=== PATIENT | male | born 2005 ===

== ENCOUNTER 2024-07-29 16:50 | Inpatient (IN) | payer MEDICAID, OTHER, SELFPAY ==
[2024-07-29 17:31] VITALS: BMI 35.0
[2024-07-29 17:32] VITALS: BP 171/92; PULSE 103; RESP 18; TEMP 36.9; O2SAT 99
[2024-07-29] MEDS: Nicotine Polacrilex 2 MG GUM 4 MG BUCCAL (17:40)
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
[2024-07-29] MEDS: OLANZapine ODT 10 MG TAB.RAPDIS TRANSLINGU ×2 (18:37→20:19)
--- NOTE | 2024-07-29 18:48 | PC.NURSE ---
Grandmother who raised him was on phone and gave her number to staff [phone] name is Aissatou she is [place] speaking only and he needs to sign a consent so we can speak with her.
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
--- OUTSIDE RECORDS SUMMARY | 2024-07-29 18:56 | XMS_ITS | Clinical Summary ---
Author Organization [facility] Address [address] [facility] [address] [place] [address] Care Team Providers Care Pastry Cook Helper Name Role Phone No Pcp, Per Patient Primary Care Provider Unavai lable Allergies No known active allergies Social History Tobacco Use Types Packs/Day Years Used Date Smoking Tobacco: Some Days Cigarettes Smokeless Tobacco: Current Tobacco Cessation:Ready to Q uit: Not Asked; Counseling Given: Not Answered Alcohol Use Standard Drinks/Week Comments Not Currently 0 (1 standard drink = 0.6 oz pur e alcohol) Sex and Gender Information Value Date Recorded Sex Assigned at Not on file Gender Identity Not on file Sexual Orientation Not on file Job Start Date Occupation Industry Not on file Not on file Not on file Last Filed Vital Signs Vital Sign Reading Time Taken Comments Blood Pressure 115/68 07/13/2022 4:10 PM EDT Pulse 72 07/13/2022 4:10 PM EDT Temperature 36.7 ??C (98 ??F) 07/13/2022 4:10 PM EDT Respiratory Rate 18 07/13/2022 4:10 PM EDT Oxygen Saturation 98% 07/13/2022 4:10 PM EDT Inhaled Oxygen Concentration - - Weight 86.2 kg (190 lb) 07/13/2022 4:10 PM EDT Height 167.6 cm (5' 6 ) 07/13/2022 4:10 PM EDT Body Mass Index 30.67 07/13/2022 4:10 PM EDT Plan of Treatment Health Maintenance Due Date Last Done Comments HIV Screening 2004 Tobacco Cessation Counseling 2004 MMR Vaccines (1 of 1 - Stand abhay series) 2005 Varicella Vaccines (1 of 2 - 13+ 2-dose series) 2017 HPV Vaccines (1 - Male 3-dos e series) 2019 Meningococcal B Vaccine (1 o f 2 - Standard) 2020 Hepatitis C Screening 2022 DTaP/Tdap/Td Vaccines (1 - Tdap) 2023 Hepatitis B Vaccines (1 of 3 - 19+ 3-dose series) 2023 Pneumococcal Vaccine: Pediat rics (0 to 5 Years) and At-Risk Patients (6 to 49 Years) (1 of 2 - PCV) 2023 COVID-19 Vaccine (1 - 2023-2 5 season) 2023 Influenza Vaccine (#1) 2023 Depression Screening 04/30/2024 HIB Vaccines Aged Out No longer eligi ble based on patient's age to complete this topic Hepatitis A Vaccines Aged Out No long er eligible based on patient's age to complete this topic IPV Vaccines Aged Out No longer eligi ble based on patient's age to complete this topic Meningococcal Vaccine Aged Out No cherelle farzad eligible based on patient's age to complete this topic Rotavirus Vaccines Aged Out No longer eligible based on patient's age to complete this topic Care Teams Pastry Cook Helper Relationship Specialty Start Date End Date No Pcp, Per Patient LASHAY PCP - General 06/28/22
--- OUTSIDE RECORDS SUMMARY | 2024-07-29 18:56 | XMS_ITS | Encounter Summary ---
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 Mercedes Bush RN - 07/28/2024 4:06 PM EDT PT BIBA FROM HOME WITH ACCIDENTAL OVERDOSE. PT ARRIVES ALERT AND ORIENTED X 3 SPEAKING CLEARLY IN FULL SENTENCES BUT FEELS OUT OF IT. PT PICKED UP MEDICATIONS FROM [facility] 3 DAYS AGO AND HAS BEEN TAKING THEM PRESCRIBED. PTS MEDICATION BOTTLES (HALDOL, LITHIUM, AND BENZTROPINE) HAVE A DIFFERENT PTS NAME. PT STATES HE HAS BEEN TAKING THE MEDICATIONS AT NIGHT BUT HAS BEEN FEELING DROWSY SOTOO MEDICATIONS THIS MORNING INSTEAD. PT SUPPOSED TO BE TAKING ZYPREXA, VISTARIL, AND MELATONIN. documented in this encounter Miscellaneous Notes * ED Obs Note - Santos Lim MD - 07/29/2024 9:37 AM EDT ED Observation Daily Note Subjective: No new medical complaints Clinical Impression None Exam: General: Alert. HEENT: Atraumatic. Neck: Supple. Respiratory: No respiratory distress. Abdominal: Nondistended. Neurologic: No gross weakness. Skin: Well perfused. Medical Decision Making: Initial ED note, vital signs, lab results were reviewed and I performed an independent interpretation. Patient was reevaluated. Patient's medical condition requires further observation to help determine final disposition. We will continue the diagnostic workup and obtain consultations as necessary. We will also monitor the patient for significant changes in medical status. 19M, hx psychiatric disorders who presented after taking another person's haldol and medications, medically cleared, with initial consideration of discharge, now in the ER with shaking and apparent pseudoseizures, stating he would like to talk to crisis. Now s/p negative repeat labs and EKG with negative head CT, well appearing, placed on observation for crisis evaluation. Seen and plan for xfer to [facility] for psych evaluation this PM. Discharge day management more than 30 minutes?: No Santos Lim MD 07/29/24 1401 * ED Obs Note - Harpreet Carbajal MD - 07/29/2024 4:40 AM EDT ED Observation Daily Note HPI Brandon Kelley is a 19 y.o.-year-old male who originally presented to the Emergency Department and was placed into observation. Please see the initial ED HPI/intake note for further details ED Observation Course Patient was monitored in the ED observation unit overnight. There were no significant events overnight, and no concerns relayed by nursing, except as noted in ED course below. Physical Examination BP (!) 148/98 (BP Location: Left arm, Patient Position: Lying) Pulse (!) 107 Temp 98.6 ??F (37 ??C) (Oral) Resp 18 SpO2 95% General: no acute distress Head: atraumatic Respiratory: unlabored breathing Cardiovascular: intact distal perfusion Gastrointestinal: nondistended Skin: warm, dry Extremities: No gross deformity Medical Decision Making ED Course as of 07/29/24441Jul 29, 2024 0439 WBC(!): 15.35 With an improving leukocytosis, no fever, no evidence of infection, the patient ambulatory, eat taking p.o. without incident, in no acute distress, vital signs stable, he is appropriate for dischargeat this time. Tachycardia noted on arrival is improving with oral fluids. [PT] ED Course User Index [PT] Harpreet Carbajal MD Clinical Impression Accidental drug overdose, initial encounter (Primary) Leukocytosis, unspecified type Transient alteration of awareness Discharge day management more than 30 minutes?: Yes Harpreet Carbajal MD 07/29/24 0442 * Attestation Note - Darius Giron MD - 07/28/2024 4:02 PM EDT [facility] EMERGENCY DEPARTMENT ED Attending Attestation Note Arrival Date: 07/28/2024 I personally made/approved the management plan and take responsibility for the patient management. Date of service: 07/28/2024 EMERGENCY DEPARTMENT ENCOUNTER [facility] EMERGENCY DEPARTMENT CHIEF COMPLAINT Drug Overdose HPI Brandon Kelley is a 19 y.o. male presenting with report of accidental ingestion of incorrect medications. The patient was noting he felt out of it. He reports he picked up the medications from the pharmacy and had been taking them the last 3 days but the bottles he showed us were for a different patient and they were for lithium 900 mg daily, Haldol and benztropine. Denies any fever, cough, vomiting, diarrhea, headache, rash, stiff neck. Denies any intentional ingestion or desire for self harm at this time. PAST MEDICAL HISTORY Past Medical History[1]reviewed SOCIAL HISTORY Social History[2]single FAMILY HISTORY Family History[3]no relevant SURGICAL HISTORY Past Surgical History[4]no relevant CURRENT MEDICATIONS Patient Medication List Previous Medications BENZTROPINE (COGENTIN) 0.5 MG TABLET CHLORPROMAZINE (THORAZINE) 50 MG TABLET ALLERGIES Allergies[5]no known allergies PHYSICAL EXAM Vitals: 07/29/24 0721 BP: 128/89 Pulse: 74 Resp: 18 Temp: SpO2: 96% Gnrl: NAD HEENT:AT/NC, EOMI, PERRLA, OPC NECK:supple, no meningismus RESP:CTA bilateral, no distress CV:RRR ABD:soft Nontender EXTR:normal pulses, no cords/calf tenderness NEURO:Slow to answer but A and O x 3, CN2-12 intact, str/sense intact PSYCH:calm and cooperative EKG Rhythm Strip: Sinus tach at 108 EKG: Sinus tach, normal QRS and intervals, nonspecific ST-T changes Independently interpreted RADIOLOGY Independently interpreted LABS: Labs BASIC METABOLIC PANEL - Abnormal Result Value Ref Range Sodium 133 (*) 136 - 144 mmol/L Potassium 3.6 3.4 - 5.1 mmol/L Chloride 99 (*) 101 - 111 mmol/L Total CO2/Bicarbonate 23 22 - 32 mmol/L Anion Gap 11 5 - 15 mmol/L BUN 10 8 - 20 mg/dL Creatinine, Blood 1.05 0.60 - 1.30 mg/dL Glucose, Blood 98 75 - 140 mg/dL Calcium 9.6 8.6 - 10.5 mg/dL Estimated GFR(CKD-EPI) 104 mL/min/BSA Comment: Estimated GFR (CKD-EPI Refit 2020) units mL/min/1.73m^2 CBC AND DIFFERENTIAL - Abnormal WBC 17.03 (*) 3.90 - 10.80 K/uL RBC 5.07 4.42 - 5.73 M/uL Hemoglobin 14.9 14.0 - 17.3 g/dL Hematocrit 43.9 40.1 - 51.0 % MCH 29.4 25.6 - 32.2 pg MCHC 33.9 32.0 - 36.0 g/dL MCV 87 83 - 96 fL RDW 12.5 11.5 - 14.0 % Platelet Count 306 154 - 369 K/uL Neutrophil 79.2 % Lymphocyte 11.7 % Monocyte 8.4 % Eosinophil 0.1 % Basophil 0.2 % Immature Granulocyte ([place], Myelo, Promyelocyte) 0.4 % Absolute Neutrophil Count 13.50 (*) 1.68 - 7.99 K/uL Absolute Immature Granulocyte ([place], Myelo, Promyelocyte) 0.06 0.00 - 0.09 K/uL Absolute Lymphocyte Count 1.99 0.66 - 4.75 K/uL Absolute Monocyte Count 1.43 (*) 0.16 - 1.40 K/uL Absolute Eosinophil Count 0.02 0.00 - 0.60 K/uL Absolute Basophil Count 0.03 0.00 - 0.32 K/uL DRUG SCREEN, URINE - Abnormal Amphetamines Screen, Urine Not Detected Not Detected Comment: Positive cut-off concentration 1000 ng/mL Barbiturates Screen, Urine Not Detected Not Detected Comment: Positive cut-off concentration 200 ng/mL. Benzodiazepine Screen, Urine Not Detected Not Detected Comment: Positive cut-off concentration 200 ng/mL Buprenorphine Screen, Urine Not Detected Not Detected Comment: Positive cut-off concentration 10 ng/mL Cannabinoids Screen, Urine Detected (*) Not Detected Comment: Positive cut-off concentration 50 ng/mL Cocaine Metabolite Screen, Urine Not Detected Not Detected Comment: Positive cut-off concentration 300 ng/mL. Methadone Screen, Urine Not Detected Not Detected Comment: Positive cut-off concentration 300 ng/mL. Opiates Screen, Urine Not Detected Not Detected Comment: Positive cut-off concentration 300 ng/mL. Oxycodone Screen, Urine Not Detected Not Detected Comment: Positive cut-off concentration 300 ng/mL. Propoxyphene Screen, Urine Not Detected Not Detected Comment: Positive cut-off concentration 300 ng/mL. Tricyclics Screen Not Detected Not Detected Comment: Positive cut-off concentration = 300 ng/mL Listed below are the typical positive cutoffs: Nortriptyline 300 Desimipramine 250 Amitriptyline 400 Doxepin 550 Amoxapine 100,000 3-[id number]-Flxvavuoyr 1,700 Chlorpromazine 1,300 Protriptyline 450 Clomipramine 350 Trimipramine 1,000 Cyclobenzaprine 400 Imipramine 350 Comment Comment: Interpretive Guidelines: Immunoassay Urine Drug Screening Screening assays provide preliminary results for medical purposes only. Many variables affect duration of detectability; Pharmacokinetics, presence of metabolite(s), patient variability (i.e body mass, state of hydration, diet) short term vs. extermination supervisor use of drug, urine pH, route of ingestion and the last time of ingestion/administration. A Positive result indicates only the presence of the drug or it's metabolite(s), and does not necessarily correlate with the extent of physiological and psychological effects. A Not Detected result indicates that the drug/metabolite is either not present or is present at levels below the cutoff of the test. Screening tests can have false positives or negatives. If requested, a confirmatory method such as GC/MS for a specific analyte can be sent to the reference laboratory if needed. Such test results are available in 3-5 days. Fentanyl testing is not available on site due to the current federal regulations. If needed, it canbe sent to the reference laboratory. If confirmatory testing is required, please contact the laboratory at [phone] to request further testing within 30 days for outpatients and 5 days for inhouse patients. An add on order is required. Narrative: Interpretive Guidelines: Immunoassay Urine Drug Screening Screening assays provide preliminary results for medical purposes only. Many variables affect duration of detectability; Pharmacokinetics, presence of metabolite(s),patient variability (i.e body mass, state of hydration,diet) short term vs. long-term use of drug, urine pH, route of ingestion and the last time of ingestion/administration. A Detected result indicates only the presence of the drug or it's metabolite(s), and does not necessarily correlate with the extent of physiological and psychological effects. A Not Detected result indicates that the drug/metabolite is either not present or is present at levels below the cutoff of the test. Screening tests can have false positives or negatives. If requested, a confirmatory method such as GC/MS for a specific analyte can be sent to the reference laboratory if needed. Such test results are available in 3-5 days. TOXICOLOGY SCREEN, BLOOD - Abnormal Acetaminophen Result,Blood <10 (*) 10 - 30 ug/mL Comment: Acetaminophen toxic range: Greater than 150 ug/mL at 4 hours after ingestion. Greater than 75 ug/mL at 8 hours after ingestion. Greater than 40 ug/mL at 12 hours after ingestion. Alcohol <5 <5 mg/dL Comment: The Laboratory will now report Ethanol units in mg/dL. To convert results to %, please divide the result by 1000. This is to better comply with the laboratory regulatory agencies. Salicylate Level, Blood <5 4 - 20 mg/dL Comment: Toxic Range: Greater than 30 mg/dl. Patients treated with Sulfasalazine may generate a FALSE HIGH result for Salicylate. Patients treated with Sulfapyridine may generate a FALSE LOW result for Salicylate. CBC - Abnormal WBC 15.35 (*) 3.90 - 10.80 K/uL RBC 4.82 4.42 - 5.73 M/uL Hemoglobin 14.2 14.0 - 17.3 g/dL Hematocrit 41.8 40.1 - 51.0 % MCH 29.5 25.6 - 32.2 pg MCHC 34.0 32.0 - 36.0 g/dL MCV 87 83 - 96 fL RDW 12.0 11.5 - 14.0 % Platelet Count 287 154 - 369 K/uL COMPREHENSIVE METABOLIC PANEL - Abnormal Sodium 134 (*) 136 - 144 mmol/L Potassium 3.5 3.4 - 5.1 mmol/L Chloride 97 (*) 101 - 111 mmol/L Total CO2/Bicarbonate 24 22 - 32 mmol/L Anion Gap 13 5 - 15 mmol/L BUN 8 8 - 20 mg/dL Creatinine, Blood 1.09 0.60 - 1.30 mg/dL Glucose, Blood 98 75 - 140 mg/dL Calcium 9.6 8.6 - 10.5 mg/dL Total Protein 8.0 (*) 6.1 - 7.9 g/dL Albumin, Blood 4.2 3.5 - 4.8 g/dL AST (SGOT) 24 15 - 41 U/L ALT (SGPT) 21 17 - 63 U/L Alkaline Phosphatase 66 38 - 126 U/L Total Bilirubin 1.0 0.3 - 1.2 mg/dL Estimated GFR(CKD-EPI) 100 mL/min/BSA Comment: This Cr-based equation underestimates GFR in patients with increased muscle mass. Order CYSTATIN C WITH GFR ESTIMATE, [id number], if additional evaluation of renal function is needed. CBC AND DIFFERENTIAL - Abnormal WBC 14.20 (*) 3.90 - 10.80 K/uL RBC 5.00 4.42 - 5.73 M/uL Hemoglobin 14.6 14.0 - 17.3 g/dL Hematocrit 43.4 40.1 - 51.0 % MCH 29.2 25.6 - 32.2 pg MCHC 33.6 32.0 - 36.0 g/dL MCV 87 83 - 96 fL RDW 12.0 11.5 - 14.0 % Platelet Count 306 154 - 369 K/uL Neutrophil 75.0 % Lymphocyte 14.2 % Monocyte 9.4 % Eosinophil 0.7 % Basophil 0.4 % Immature Granulocyte ([place], Myelo, Promyelocyte) 0.3 % Absolute Neutrophil Count 10.65 (*) 1.68 - 7.99 K/uL Absolute Immature Granulocyte ([place], Myelo, Promyelocyte) 0.04 0.00 - 0.09 K/uL Absolute Lymphocyte Count 2.02 0.66 - 4.75 K/uL Absolute Monocyte Count 1.34 0.16 - 1.40 K/uL Absolute Eosinophil Count 0.10 0.00 - 0.60 K/uL Absolute Basophil Count 0.05 0.00 - 0.32 K/uL MAGNESIUM - Normal Magnesium, Blood 1.8 1.8 - 2.5 mg/dL LITHIUM LEVEL - Normal Bena 0.9 0.6 - 1.2 mmol/L Comment: For peroidic testing and in situations of suspected inadequate dosage, sampling should be performed 12 hours after the last dose SARS COV2/INFLUENZA A/B AND RSV - Normal Coronavirus SARS-CoV-2 Negative Negative Influenza A Negative Negative Influenza B Negative Negative RSV by PCR Negative Negative Narrative: Test performed with [employer] GeneXpert SARS-CoV-2 PCR assay, which has received emergency use authorization (EUA) by the U.S. Food and Drug Administration. Negative results do not preclude SARS-CoV-2 infection and should not be used as the sole basis for treatment or other patient management decisions. LITHIUM LEVEL - Normal Bena 0.7 0.6 - 1.2 mmol/L Comment: For peroidic testing and in situations of suspected inadequate dosage, sampling should be performed 12 hours after the last dose TROPONIN - Normal Troponin I 0.01 <0.03 ng/mL Comment: 99th percentile upper reference limit (URL) <0.03 ng/ml Diagnostic sensitivity / specificity for serial time intervals after symptom onset Hours after symptom onset Sensitivity Specificity < 8 hours 90% 91% >=8 hours 92% 89% The hallmark of the [employer]'s Third [place] Definition of NV (myocardial infarction) is the detection of a rise and/or fall of cardiac biomarker values, with at least one of the values being elevated (i.e., > 99th percentile upper reference limit, URL). PH, VENOUS - Normal pH, Venous 7.41 7.33 - 7.43 MINT GREEN TOP PST Tube Received CBC AND DIFFERENTIAL Narrative: The following orders were created for panel order CBC and Differential. Procedure Abnormality Status --------- ------ CBC and Differential[[id number]] Abnormal Final result Please view results for these tests on the individual orders. CBC AND DIFFERENTIAL Narrative: The following orders were created for panel order CBC and Differential. Procedure Abnormality Status --------- ------ CBC and Differential[[id number]] Abnormal Final result Please view results for these tests on the individual orders. LABELS FOR EXTRA TUBES Narrative: The following orders were created for panel order Labels for Extra Tubes. Procedure Abnormality Status --------- ------ Mint Green Top[[id number]] Final result Please view results for these tests on the individual orders. ED COURSE & MEDICAL DECISION MAKING ED Course as of 07/29/24 1406 Tue Jul 29, 2024 4371 WBC(!): 15.35 With an improving leukocytosis, no fever, no evidence of infection, the patient ambulatory, eat taking p.o. without incident, in no acute distress, vital signs stable, he is appropriate for dischargeat this time. Tachycardia noted on arrival is improving with oral fluids. [PT] ED Course User Index [PT] Harpreet Carbajal MD DIFFERENTIAL:med ingestion, med toxicity, inf etiology, met enceph All nursing and triage notes reviewed. All labs ordered reviewed MDM: 19-year-old male, presents not feeling well noting he had been taking medications for 3 days and states he realized that the prescription bottles were for someone else. He had just picked up refills at the pharmacy. We did check labs, toxicology screens, EKG. Bena level was within stable range. We did get a repeat about 6 to 8 hours later and it was downtrending not going up. We did take the bottles away. He denies any attempt at self harm at this time He does have a leukocytosis. He has no fever. He is neck is supple, no rash or stiff neck. No signsor symptoms of infection. I was updated that earlier he had been given some Ativan and as he was getting somewhat aggressive with staff which they know has happened in the past. We are continuing to keep him in observation status as he awakens. We will ensure he goes back to his regular medications. No indication for LP, blood cultures, or abx. May consider consult if any changes Consideration of Admission/Observation: Escalation of care: ED obs for further monitoring as meds wear off Discussion with Other Healthcare Provider: Patient's presentation and ED course discussed with ED PA Independent Interpretation of Studies: EKG: See interpretation included in this note. Rhythm Strip: My interpretation is: ST at 108 Review of External (Non-ED) Records: Medical record: prior obs admissions and med hx Tests considered: head CT/LP not indicated Prescription medication considered but not given after discussion with patient/family: Prescriptionconsidered: No toxadrome req tx and Li level not supratherapeutic (900mg daily is accepted startingdose) DISPOSITION:adm ED obs Clinical Impression Accidental drug overdose, initial encounter (Primary) Leukocytosis, unspecified type Transient alteration of awareness Psychosis, unspecified psychosis type (HCC) Darius Giron MD [1] No past medical history on file. [2] Social History Socioeconomic History Marital status: Single Spouse name: N/A Number of children: 0 Highest education level: 11th grade Occupational History Occupation: Unemployed Occupation: Unemployed Tobacco Use Smoking status: Every Day Types: Cigarettes Tobacco comments: Pt states that when he can't smoke cigarettes or weed he has to have music or he will be inclined to hurt someone. Vaping Use Vaping status: Unknown Substance and Sexual Activity Alcohol use: Not Currently Comment: denies etoh use, tox negative Drug use: Yes Types: Marijuana Sexual activity: Yes Partners: Female control/protection: None [3] Family History Family history unknown: Yes [4] No past surgical history on file. [5] No Known Allergies Darius Giron MD 07/29/24 1407 documented in this encounter Plan of Treatment Pending Results Name Type Priority Associated Diagnoses Date /Time ECG 12 lead, to be obtained, other indication ECG STAT 07/28 4:18 PM EDT ECG 12 lead ECG STAT 07/29/2024 9: 08 AM EDT documented as of this encounter Procedures Procedure Name Priority Date/Time Associated Diagnosis Comments CT HEAD WO CONTRAST STAT 07/29/2024 9 :26 AM EDT ECG 12-LEAD STAT 07/29/2024 9:08 AM EDT Procedure Note - 07/29/2024 9:08 AM EDTThis note is in progress. SINUS RHYTHM NONSPECIFIC T-WAVE ABNORMALITY BORDERLINE ECG LABELS FOR EXTRA TUBES Routine 07/29/2024 8:48 AM EDT MINT GREEN TOP Routine 07/29/2024 8:48 AM EDT CBC AND DIFFERENTIAL STAT 07/29/2024 8:40 AM EDT CBC AND DIFFERENTIAL STAT 07/29/2024 8:40 AM EDT PH, VENOUS Routine 07/29/2024 8:38 AM EDT CBC STAT 07/29/2024 4:22 AM EDT LITHIUM LEVEL STAT 07/29/2024 12:33 AM EDT DRUG SCREEN, URINE STAT 07/28/2024 11:27 PM EDT TOXICOLOGY SCREEN, BLOOD STAT 07/28/2024 11:04 PM EDT TROPONIN STAT 07/28/2024 11:04 PM EDT COMPREHENSIVE METABOLIC PANEL STAT 07/28/2024 11:04 PM EDT CBC AND DIFFERENTIAL STAT 07/28/2024 5:37 PM EDT CBC AND DIFFERENTIAL STAT 07/28/2024 5:37 PM EDT SARS COV2/INFLUENZA A/B AND RSV STAT 07/28/2024 5:33 PM EDT MAGNESIUM STAT 07/28/2024 5:20 PM EDT LITHIUM LEVEL STAT 07/28/2024 5:20 PM EDT BASIC METABOLIC PANEL STAT 07/28/2024 5:20 PM EDT ECG 12-LEAD STAT 07/28/2024 4:18 PM EDT Procedure Note - 07/28/2024 4:18 PM EDTThis note is in progress. SINUS TACHYCARDIA NONSPECIFIC T-WAVE ABNORMALITY ABNORMAL RHYTHM ECG documented in this encounter Results * CT Head Without Contrast (07/29/2024 9:26 AM EDT) Anatomical Region Laterality Modality Head Computed Tomogra phy 07/29/2024 9:29 AM EDT Impressions 07/29/2024 9:30 AM EDT No evidence of acute intracranial pathology. Signed By: Eduardo Ferguson on 07/29/2024 9:30 AM on [id number] Narrative 07/29/2024 9:30 AM EDT EXAM: CT HEAD WO CONTRAST INDICATION: weakness. TECHNIQUE: Axial CT imaging of the head/brain was performed without intravenous contrast. Coronal and sagittal reformatted images were produced from the axial data set. All CT scans at this facility utilize one or more dose reduction techniques such as; automated exposure control; ma/kV adjustment per patient size; or iterative reconstruction technique. COMPARISON: None provided or available. FINDINGS: ? CEREBRAL PARENCHYMA: No evidence of hemorrhage, mass effect or acute territorial infarction. Parenchymal volume is appropriate for age. CEREBELLUM AND BRAINSTEM: Within normal limits. VENTRICLES: Within normal limits. EXTRA-AXIAL SPACES: No abnormal collection. VISUALIZED PARANASAL SINUSES: Predominantly clear. MASTOIDS: Predominantly clear. VISUALIZED ORBITS: Within normal limits. CALVARIUM: No evidence of acute fracture. No suspicious lesion. OTHER: None significant. Procedure Note Eduardo Ferguson MD - 07/29/2024 EXAM: CT HEAD WO CONTRAST INDICATION: weakness. TECHNIQUE: Axial CT imaging of the head/brain was performed without intravenous contrast. Coronal and sagittal reformatted images were produced from the axial data set. All CT scans at this facility utilize one or more dose reduction techniques such as; automated exposure control; ma/kV adjustment per patient size; or iterative reconstruction technique. COMPARISON: None provided or available. FINDINGS: CEREBRAL PARENCHYMA: No evidence of hemorrhage, mass effect or acute territorial infarction. Parenchymal volume is appropriate for age. CEREBELLUM AND BRAINSTEM: Within normal limits. VENTRICLES: Within normal limits. EXTRA-AXIAL SPACES: No abnormal collection. VISUALIZED PARANASAL SINUSES: Predominantly clear. MASTOIDS: Predominantly clear. VISUALIZED ORBITS: Within normal limits. CALVARIUM: No evidence of acute fracture. No suspicious lesion. OTHER: None significant. IMPRESSION: No evidence of acute intracranial pathology. Signed By: Eduardo Ferguson on 07/29/2024 9:30 AM on [id number] Santos Lim MD IMG CT ORDERABLES Final Re sult * Mint Green Top (07/29/2024 8:48 AM EDT) PST Tube Received 07/29/2024 10:01 AM EDT [facility] Blood PERIPHERAL BLOOD SPECIMEN / Unknown Venipuncture / Unknown 07/29/2024 8:48 AM EDT 07/29/2024 8:48 AM EDT Santos Lim MD LAB BLOOD ORDERABLES Final Result [facility] [address] [place] [address], [place] * (ABNORMAL) CBC and Differential (07/29/2024 8:40 AM EDT) WBC 14.20(H) 3.90 - 10.80 K/uL 07/29/2024 8:51 AM [facility] RBC 5.00 4.42 - 5.73 M/uL 07/29/2024 8:51 AM [facility] Hemoglobin 14.6 14.0 - 17.3 g/dL 07/29/2024 8:51 AM [facility] Hematocrit 43.4 40.1 - 51.0 % 07/29/2024 8:51 AM [facility] MCH 29.2 25.6 - 32.2 pg 07/29/2024 8:51 AM [facility] MCHC 33.6 32.0 - 36.0 g/dL 07/29/2024 8:51 AM [facility] MCV 87 83 - 96 fL 07/29/2024 8:51 AM [facility] RDW 12.0 11.5 - 14.0 % 07/29/2024 8:51 AM [facility] Platelet Count 306 154 - 369 K/uL 07/29/2024 8:51 AM [facility] Neutrophil 75.0 % 07/29/2024 8:51 AM [facility] Lymphocyte 14.2 % 07/29/2024 8:51 AM [facility] Monocyte 9.4 % 07/29/2024 8:51 AM [facility] Eosinophil 0.7 % 07/29/2024 8:51 AM [facility] Basophil 0.4 % 07/29/2024 8:51 AM [facility] Immature Granulocyte ([place], Myelo, Promyelocyte) 0.3 % 07/29/2024 8:51 AM [facility] Absolute Neutrophil Count 10.65(H) 1.68 - 7.99 K/uL 07/29/2024 8:51 AM [facility] Absolute Immature Granulocyte ([place], Myelo, Promyelocyte) 0.04 0.00 - 0.09 K/uL 07/29/2024 8:51 AM [facility] Absolute Lymphocyte Count 2.02 0.66 - 4.75 K/uL 07/29/2024 8:51 AM [facility] Absolute Monocyte Count 1.34 0.16 - 1.40 K/uL 07/29/2024 8:51 AM [facility] Absolute Eosinophil Count 0.10 0.00 - 0.60 K/uL 07/29/2024 8:51 AM [facility] Absolute Basophil Count 0.05 0.00 - 0.32 K/uL 07/29/2024 8:51 AM [facility] Blood PERIPHERAL BLOOD SPECIMEN / Unknown Venipuncture / Unknown 07/29/2024 8:40 AM EDT 07/29/2024 8:42 AM EDT us Santos Lim MD LAB BLOOD ORDERABLES Final Result Performing Organization Address [facility]/ZIP Co de Phone Number [facility] [address] [place] [phone], [place] * pH, Venous (07/29/2024 8:38 AM EDT) pH, Venous 7.41 7.33 - 7.43 07/29/2024 9:01 AM [facility] Blood PERIPHERAL BLOOD SPECIMEN / Unknown Venipuncture / Unknown 07/29/2024 8:38 AM EDT 07/29/2024 8:56 AM EDT us Santos Lim MD LAB BLOOD ORDERABLES Final Result [facility] [address] [place] [phone], [place] * (ABNORMAL) CBC (07/29/2024 4:22 AM EDT) WBC 15.35(H) 3.90 - 10.80 K/uL 07/29/2024 4:28 AM [facility] RBC 4.82 4.42 - 5.73 M/uL 07/29/2024 4:28 AM [facility] Hemoglobin 14.2 14.0 - 17.3 g/dL 07/29/2024 4:28 AM [facility] Hematocrit 41.8 40.1 - 51.0 % 07/29/2024 4:28 AM [facility] MCH 29.5 25.6 - 32.2 pg 07/29/2024 4:28 AM [facility] MCHC 34.0 32.0 - 36.0 g/dL 07/29/2024 4:28 AM [facility] MCV 87 83 - 96 fL 07/29/2024 4:28 AM [facility] RDW 12.0 11.5 - 14.0 % 07/29/2024 4:28 AM [facility] Platelet Count 287 154 - 369 K/uL 07/29/2024 4:28 AM [facility] Blood PERIPHERAL BLOOD SPECIMEN / Unknown Venipuncture / Unknown 07/29/2024 4:22 AM EDT 07/29/2024 4:26 AM EDT us Harpreet Carbajal MD LAB BLOOD ORDERABLES Final Resu lt Performing Organization Address [facility] Co de Phone Number [facility] [address] [place] [phone], [place] * Bena Level (07/29/2024 12:33 AM EDT) Bena 0.7 0.6 - 1.2 mmol/L 07/29/2024 12:58 AM EDT [facility] Comment:For peroidic testing and in situations of suspected inadequate dosage, sampling should be performed 12 hours after the last dose Blood PERIPHERAL BLOOD SPECIMEN / Unknown Venipuncture / Unknown 07/29/2024 12:33 AM EDT 07/29/2024 12:36 AM EDT us Darius Giron MD LAB BLOOD ORDERABLES Final Res ult Performing Organization Address [facility] Co de Phone Number [facility] [address] [place] [phone], [place] * (ABNORMAL) Drug Screen, Urine (07/28/2024 11:27 PM EDT) [facility] Amphetamines Screen, Urine Not Detected Not Detected 07/28/2024 11:53 PM [facility] Comment:Positive cut-off con centration 1000 ng/mL Barbiturates Screen, Urine Not Detected Not Detected 07/28/2024 11:53 PM [facility] Comment:Positive cut-off con centration 200 ng/mL. Benzodiazepine Screen, Urine Not Detected Not Detected 07/28/2024 11:53 PM [facility] Comment: Positive cut-off concentration 200 ng/mL Buprenorphine Screen, Urine Not Detected Not Detected 07/28/2024 11:53 PM [facility] Comment:Positive cut-off con centration 10 ng/mL Cannabinoids Screen, Urine Detected(A) Not Detected 07/28/2024 11:53 PM [facility] Comment:Positive cut-off con centration 50 ng/mL Cocaine Metabolite Screen, Urine Not Detected Not Detected 07/28/2024 11:53 PM [facility] Comment:Positive cut-off con centration 300 ng/mL. Methadone Screen, Urine Not Detected Not Detected 07/28/2024 11:53 PM [facility] Comment:Positive cut-off con centration 300 ng/mL. Opiates Screen, Urine Not Detected Not Detected 07/28/2024 11:53 PM [facility] Comment:Positive cut-off con centration 300 ng/mL. Oxycodone Screen, Urine Not Detected Not Detected 07/28/2024 11:53 PM [facility] Comment:Positive cut-off con centration 300 ng/mL. Propoxyphene Screen, Urine Not Detected Not Detected 07/28/2024 11:53 PM [facility] Comment:Positive cut-off con centration 300 ng/mL. Tricyclics Screen Not Detected Not Detected 07/28/2024 11:53 PM [facility] Comment: Positive cut-off concentration = 300 ng/mL Listed below are the typical positive cutoffs: ? Nortriptyline ? 300 ?Desimipramine ?250 ? Amitriptyline ? 400 ?Doxepin ?550 ? Amoxapine ? 100,000 ?0-[id number]-Fdbehcabls 1,700 ? Chlorpromazine ?1,300 ?Protriptyline ?450 ? Clomipramine ?350 ?Trimipramine ? 1,000 ? Cyclobenzaprine ? 400 ?Imipramine ? 350 Comment 07/28/2024 11:53 PM EDT [facility] Comment: Interpretive Guidelines: ??Immunoassay Urine Drug Screening Screening assays provide preliminary results for medical purposes only. ??Many variables affect duration of detectability; Pharmacokinetics, presence of metabolite(s), patient variability (i.e body mass, state of hydration, diet) short term vs. extermination supervisor use of drug, urine pH, route of ingestion and the last time of ingestion/administration. A Positive result indicates only the presence of the drug or it's metabolite(s), and does not necessarily correlate with the extent of physiological and psychological effects. A Not Detected result indicates that the drug/metabolite is either not present or is present at levels below the cutoff of the test. Screening tests can have false positives or negatives. If requested, a confirmatory method such as GC/MS for a specific analyte can be sent to the reference laboratory if needed. Such test results are available in 3-5 days. Fentanyl testing is not available on site due to the current federal regulations. If needed, it can be sent to the reference laboratory. If confirmatory testing is required, please contact the laboratory at [phone] to request further testing within 30 days for outpatients and 5 days for inhouse patients. An add on order is required. Urine URINE SPECIMEN / Unknown Collection / Unknown 07/28/2024 11:27 PM EDT 07/28/2024 11:29 PM EDT [facility] - 07/28/2024 11:53 PM EDT Interpretive Guidelines: ??Immunoassay Urine Drug Screening Screening assays provide preliminary results for medical purposes only. ??Many variables affect duration of detectability; Pharmacokinetics, presence of metabolite(s),patient variability (i.e body mass, state of hydration,diet) short term vs. extermination supervisor use of drug, urine pH, route of ingestion and the last time of ingestion/administration. A Detected result indicates only the presence of the drug or it's metabolite(s), and does not necessarily correlate with the extent of physiological and psychological effects. A Not Detected result indicates that the drug/metabolite is either not present or is present at levels below the cutoff of the test. Screening tests can have false positives or negatives. If requested, a confirmatory method such as GC/MS for a specific analyte can be sent to the reference laboratory if needed. Such test results are available in 3-5 days. us Etelvina WILSON URINE ORDERABLES Final Result [facility] [address] [place] [phone], * (ABNORMAL) Comprehensive Metabolic Panel (07/28/2024 11:04 PM EDT) Sodium 134(L) 136 - 144 mmol/L 07/29/2024 8:54 AM [facility] Potassium 3.5 3.4 - 5.1 mmol/L 07/29/2024 8:54 AM [facility] Chloride 97(L) 101 - 111 mmol/L 07/29/2024 8:54 AM [facility] Total CO2/Bicarbonate 24 22 - 32 mmol/L 07/29/2024 8:54 AM [facility] Anion Gap 13 5 - 15 mmol/L 07/29/2024 8:54 AM [facility] BUN 8 8 - 20 mg/dL 07/29/2024 8:54 AM [facility] Creatinine, Blood 1.09 0.60 - 1.30 mg/dL 07/29/2024 8:54 AM [facility] Glucose, Blood 98 75 - 140 mg/dL 07/29/2024 8:54 AM [facility] Calcium 9.6 8.6 - 10.5 mg/dL 07/29/2024 8:54 AM [facility] Total Protein 8.0(H) 6.1 - 7.9 g/dL 07/29/2024 8:54 AM [facility] Albumin, Blood 4.2 3.5 - 4.8 g/dL 07/29/2024 8:54 AM [facility] AST (SGOT) 24 15 - 41 U/L 07/29/2024 8:54 AM [facility] ALT (SGPT) 21 17 - 63 U/L 07/29/2024 8:54 AM [facility] Alkaline Phosphatase 66 38 - 126 U/L 07/29/2024 8:54 AM [facility] Total Bilirubin 1.0 0.3 - 1.2 mg/dL 07/29/2024 8:54 AM [facility] Estimated GFR(CKD-EPI) 100 mL/min/BS A 07/29/2024 8:54 AM [facility] Comment:This Cr-based equati on underestimates GFR in patients with increased muscle mass. Order CYSTATIN C WITH GFR ESTIMATE, [id number], if additional evaluation of renal function is needed. Blood PERIPHERAL BLOOD SPECIMEN / Unknown Venipuncture / Unknown 07/28/2024 11:04 PM EDT 07/28/2024 11:10 PM EDT us Santos Lim MD LAB BLOOD ORDERABLES Final Result [facility] [address] [place] [address], * Troponin I (07/28/2024 11:04 PM EDT) Troponin I 0.01 <0.03 ng/mL 07/29/2024 8:54 AM [facility] Comment: 99th percentile upper reference limit (URL) <0.03 ng/ml Diagnostic sensitivity / specificity for serial time intervals after symptom onset Hours after symptom onset ?? Sensitivity ?? Specificity < 8 hours ?90% ?91% >=8 hours ?92% ?89% The hallmark of the [employer]'s Third [place] Definition of [place] (myocardial infarction) is the detection of a rise and/or fall of cardiac biomarker values, with at least one of the values being elevated (i.e., > 99th percentile upper reference limit, URL). Blood PERIPHERAL BLOOD SPECIMEN / Unknown Venipuncture / Unknown 07/28/2024 11:04 PM EDT 07/28/2024 11:10 PM EDT us Santos Lim MD LAB BLOOD ORDERABLES Final Result [facility] [address] [place] [phone], * (ABNORMAL) Toxicology Screen, Plasma (07/28/2024 11:04 PM EDT) Acetaminophen Result,Blood <10(L) 10 - 30 ug/mL 07/28/2024 11:30 PM EDT [facility] Comment: Acetaminophen toxic range: ?? Greater than 150 ug/mL at 4 hours after ingestion. ?? Greater than ??75 ug/mL at 8 hours after ingestion. ?? Greater than ??40 ug/mL at 12 hours after ingestion. Alcohol <5 <5 mg/dL 07/28/2024 11:30 PM EDT [facility] Comment: The Laboratory will now report Ethanol units in mg/dL. To convert results to %, please divide the result by 1000. This is to better comply with the laboratory regulatory agencies. Salicylate Level, Blood <5 4 - 20 mg/dL 07/28/2024 11:30 PM EDT [facility] Comment: Toxic Range: Greater than 30 mg/dl. Patients treated with Sulfasalazine may generate a FALSE HIGH result for Salicylate. Patients treated with Sulfapyridine may generate a FALSE LOW result for Salicylate. Blood PERIPHERAL BLOOD SPECIMEN / Unknown Venipuncture / Unknown 07/28/2024 11:04 PM EDT 07/28/2024 11:10 PM EDT us Darius Giron MD LAB BLOOD ORDERABLES Final Res ult [facility] [address] [place] [address], [place] * (ABNORMAL) CBC and Differential (07/28/2024 5:37 PM EDT) WBC 17.03(H) 3.90 - 10.80 K/uL 07/28/2024 5:48 PM EDT [facility] RBC 5.07 4.42 - 5.73 M/uL 07/28[facility]24 [facility] Hemoglobin 14.9 14.0 - 17.3 g/dL 07/28/2024 5:48 PM [facility] Hematocrit 43.9 40.1 - 51.0 % 07/28/2024 5:48 [facility] MCH 29.4 25.6 - 32.2 pg 07/28/2024 5:48 [facility] MCHC 33.9 32.0 - 36.0 g/dL 07/28/2024 5:48 [facility] MCV 87 83 - 96 fL 07/28/2024 5:48 [facility] RDW 12.5 11.5 - 14.0 % 07/28/2024 5:48 [facility] Platelet Count 306 154 - 369 K/uL 07/28/2024 5:48 PM [facility] Neutrophil 79.2 % 07/28/2024 5:48 [facility] Lymphocyte 11.7 % 07/28/2024 5:48 [facility] Monocyte 8.4 % 07/28/2024 5:48 PM EDT [facility] Eosinophil 0.1 % 07/28/2024 5:48 PM EDT [facility] Basophil 0.2 % 07/28/2024 5:48 PM EDT [facility] Immature Granulocyte (Cordova, Myelo, Promyelocyte) 0.4 % 07/28/2024 5:48 PM EDT [facility] Absolute Neutrophil Count 13.50(H) 1.68 - 7.99 K/uL 07/28/2024 5:48 PM EDT [facility] Absolute Immature Granulocyte (Cordova, Myelo, Promyelocyte) 0.06 0.00 - 0.09 K/uL 07/28/2024 5:48 PM EDT [facility] Absolute Lymphocyte Count 1.99 0.66 - 4.75 K/uL 07/28/2024 5:48 PM EDT [facility] Absolute Monocyte Count 1.43(H) 0.16 - 1.40 K/uL 07/28/2024 5:48 PM EDT [facility] Absolute Eosinophil Count 0.02 0.00 - 0.60 K/uL 07/28/2024 5:48 PM EDT [facility] Absolute Basophil Count 0.03 0.00 - 0.32 K/uL 07/28/2024 5:48 PM EDT [facility] Blood PERIPHERAL BLOOD SPECIMEN / Unknown Venipuncture / Unknown 07/28/2024 5:37 PM EDT 07/28/2024 5:39 PM EDT us Etelvina WILSON LAB BLOOD ORDERABLES Final Res ult [facility] [address] [place] [address], [place] * Covid/Flu/RSV (Rapid) (07/28/2024 5:33 PM EDT) Coronavirus SARS-CoV-2 Negative Negative 07/28/2024 6:26 PM EDT [facility] Influenza A Negative Negative 07/28/2024 6:26 PM EDT [facility] Influenza B Negative Negative 07/28/2024 6:26 PM EDT [facility] RSV by PCR Negative Negative 07/28/2024 6:26 PM EDT [facility] Respiratory SWAB OF INTERNAL NOSE / Unknown Collection / Unknown 07/28/2024 5:33 PM EDT 07/28/2024 5:39 PM EDT Narrative [facility] - 07/28/2024 6:26 PM EDT Test performed with [employer] GeneXpert SARS-CoV-2 PCR assay, which has received emergency use authorization (EUA) by the U.S. Food and Drug Administration. Negative results do not preclude SARS-CoV-2 infection and should not be used as the sole basis for treatment or other patient management decisions. us Etelvina WILSON BODY FLUIDS AND STOOLS ORDERAB LES Final Result Performing Organization Address [facility] Co de Phone Number [facility] [address] [place] [phone], [place] * Bena Level (07/28/2024 5:20 PM EDT) Bena 0.9 0.6 - 1.2 mmol/L 07/28/2024 5:46 PM EDT [facility] Comment:For peroidic testing and in situations of suspected inadequate dosage, sampling should be performed 12 hours after the last dose Blood PERIPHERAL BLOOD SPECIMEN / Unknown Venipuncture / Unknown 07/28/2024 5:20 PM EDT 07/28/2024 5:23 PM EDT Etelvina WILSON LAB BLOOD ORDERABLES Final Res ult Performing Organization Address [facility]/ZIP Co de Phone Number [facility] [address] [place] [phone], [place] * Magnesium (07/28/2024 5:20 PM EDT) Magnesium, Blood 1.8 1.8 - 2.5 mg/dL 07/28/2024 5:45 PM EDT [facility] Blood PERIPHERAL BLOOD SPECIMEN / Unknown Venipuncture / Unknown 07/28/2024 5:20 PM EDT 07/28/2024 5:23 PM EDT us Etelvina WILSON LAB BLOOD ORDERABLES Final Res ult [facility] [address] [place] [address], [place] * (ABNORMAL) Basic Metabolic Panel (07/28/2024 5:20 PM EDT) Sodium 133(L) 136 - 144 mmol/L 07/28/2024 5:45 PM EDT [facility] Potassium 3.6 3.4 - 5.1 mmol/L 07/28/2024 5:45 PM EDT [facility] Chloride 99(L) 101 - 111 mmol/L 07/28/2024 5:45 PM EDT [facility] Total CO2/Bicarbonat e 23 22 - 32 mmol/L 07/28/2024 5:45 PM EDT [facility] Anion Gap 11 5 - 15 mmol/L 07/28/2024 5:45 PM EDT [facility] BUN 10 8 - 20 mg/dL 07/28/2024 5:45 PM T [facility] Creatinine, Blood 1.05 0.60 - 1.30 mg/dL 07/28/2024 5:45 PM T [facility] Glucose, Blood 98 75 - 140 mg/dL 07/28/2024 5:45 PM [facility] Calcium 9.6 8.6 - 10.5 mg/dL 07/28/2024 5:45 PM EDT [facility] Estimated GFR(CKD-EPI) 104 mL/min/BSA 07/28/2024 5:45 PM EDT [facility] Comment:Estimated GFR (CKD-E PI Refit 2020) units mL/min/1.73m^2 Blood PERIPHERAL BLOOD SPECIMEN / Unknown Venipuncture / Unknown 07/28/2024 5:20 PM EDT 07/28/2024 5:23 PM EDT Etelvina WILSON LAB BLOOD ORDERABLES Final Res ult Performing Organization Address City/[facility]/ZIP Co de Phone Number [facility] [address] [place] [address], documented in this encounter Visit Diagnoses Diagnosis Accidental drug overdose, initial encounter- Primary Leukocytosis, unspecified type Transient alteration of awareness Psychosis, unspecified psychosis type (HCC) documented in this encounter Administered Medications Inactive Administered Medications - up to 3 most recent administrations Medication Order MAR Action Action Date Dose Rate Site acetaminophen (TYLENOL) 650 mg/20.3 mL solution 650 mg 650 mg, Oral, Every 6 hours PRN, Starting on Sun07/28/24 at 2156, Until Sun07/29/24 at 1642, mild (1-3) pain , fever greater than 101 F, If unable to tolerate tablet acetaminophen (TYLENOL) tablet 650 mg 650 mg, Oral, Every 6 hours PRN, Starting on Sun07/28/24 at 2156, Until Sun07/29/24 at 1642, fever greater than 101 F, mild (1-3) pain ibuprofen (MOTRIN) 100 mg/5 mL suspension 600 mg 600 mg, Oral, Every 6 hours PRN, Starting on Sun07/28/24 at 2156, Until Sun07/29/24 at 1642, mild (1-3) pain , if acetaminophen not available or not ordered; if acetaminophen ordered, 2nd line ibuprofen (MOTRIN) tablet 600 mg 600 mg, Oral, Every 6 hours PRN, Starting on Sun07/28/24 at 2156, Until Sun07/29/24 at 1642, mild (1-3) pain , if acetaminophen not available or not ordered; if acetaminophen ordered, 2nd line LORazepam (ATIVAN) 2 mg/mL injection - ADS Override Pull 1 dose, Starting on Sun07/28/24 at 1952, Until Sun07/28/24 at 1954 LORazepam (ATIVAN) injection 1 mg 1 mg, Intramuscular, Every 6 hours PRN, Starting on Sun07/29/24 at 0944, Until Sun07/29/24 at 1642, anxiety Given 07/29/2024 12:19 PM EDT 1 mg Left Deltoid LORazepam (ATIVAN) injection 2 mg 2 mg, Intramuscular, Once, 1 dose, On Sun07/28/24 at 1952 Given 07/28/2024 7:54 PM EDT 2 mg Right Deltoid ondansetron (ZOFRAN) injection 4 mg 4 mg, Intravenous, Every 8 hours PRN, nausea, vomiting, if NOT tolerating PO, Starting on Sun07/28/24 at 2156 ondansetron (ZOFRAN-ODT) disintegrating tablet 4 mg 4 mg, Oral, Every 8 hours PRN, Starting on Sun07/28/24 at 2156, Until Sun07/29/24 at 1642, nausea, vomiting, if tolerating PO documented in this encounter Active and Recently Administered Medications Times are shown in EDT. Scheduled Medication Order 07/27/2024 07/28/2024 07/29/2024 0.9% sodium chloride (NS) BOLUS 1,000 mL 1,000 mL, Intravenous, Once, On Sun07/28/24 at 2302, For 1 dose, STAT, Administer over 1 Hours 0226 (Not Given - Provider: Iris Garcia RN - Reason: Patient Refused) 0.9% sodium chloride (NS) BOLUS 1,000 mL 1,000 mL, Intravenous, Once, On Sun07/28/24 at 2302, For 1 dose, STAT, Administer over 1 Hours 0226 (Not Given - Provider: Iris Garcia RN - Reason: Patient Refused) 0.9% sodium chloride (NS) BOLUS 500 mL 500 mL, Intravenous, Once, On Sun07/29/24 at 0834, For 1 dose, STAT, Administer over 1 Hours 0838 (Not Given - Provider: Leslie Juarez RN - Reason: Patient Refused) LORazepam (ATIVAN) injection 2 mg (COMPLETED) 2 mg, Intramuscular, Once, 1 dose, On Sun07/28/24 at 1952 1954 (Given - Provider: Mercedes Bush RN) PRN Medication Order 07/27/2024 07/28/2024 07/29/2024 acetaminophen (TYLENOL) 650 mg/20.3 mL solution 650 mg(Linked Group 1) 650 mg, Oral, Every 6 hours PRN, Starting on Sun07/28/24 at 2156, Until Sun07/29/24 at 1642, mild (1-3) pain , fever greater than 101 F, If unable to tolerate tablet acetaminophen (TYLENOL) tablet 650 mg(Linked Group 1) 650 mg, Oral, Every 6 hours PRN, Starting on Sun07/28/24 at 2156, Until Sun07/29/24 at 1642, fever greater than 101 F, mild (1-3) pain ibuprofen (MOTRIN) 100 mg/5 mL suspension 600 mg(Linked Group 2) 600 mg, Oral, Every 6 hours PRN, Starting on Sun07/28/24 at 2156, Until Sun07/29/24 at 1642, mild (1-3) pain , if acetaminophen not available or not ordered; if acetaminophen ordered, 2nd line ibuprofen (MOTRIN) tablet 600 mg(Linked Group 2) 600 mg, Oral, Every 6 hours PRN, Starting on Sun07/28/24 at 2156, Until Sun07/29/24 at 1642, mild (1-3) pain , if acetaminophen not available or not ordered; if acetaminophen ordered, 2nd line LORazepam (ATIVAN) injection 1 mg 1 mg, Intramuscular, Every 6 hours PRN, Starting on Sun07/29/24 at 0944, Until Sun07/29/24 at 1642, anxiety 1219 (Given - Provid er: Leslie Juarez RN) melatonin tablet 3 mg 3 mg, Oral, At bedtime as needed, Starting on Sun07/28/24 at 2156, Until Sun07/29/24 at 1642, insomnia ondansetron (ZOFRAN) injection 4 mg(Linked Group 3) 4 mg, Intravenous, Every 8 hours PRN, nausea, vomiting, if NOT tolerating PO, Starting on Sun07/28/24 at 2156 ondansetron (ZOFRAN-ODT) disintegrating tablet 4 mg(Linked Group 3) 4 mg, Oral, Every 8 hours PRN, Starting on Sun07/28/24 at 2156, Until Sun07/29/24 at 1642, nausea, vomiting, if tolerating PO Linked Groups Order Group 1: acetaminophen (TYLENOL) tablet 650 mgJump to med 650 mg, Oral, Every 6 hours PRN, Starting on Sun07/28/24 at 2156, Until Sun07/29/24 at 1642, fever greater than 101 F, mild (1-3) pain Or acetaminophen (TYLENOL) 650 mg/20.3 mL solution 650 mgJump to med 650 mg, Oral, Every 6 hours PRN, Starting on Sun07/28/24 at 2156, Until Sun07/29/24 at 1642, mild (1-3) pain , fever greater than 101 F, If unable to tolerate tablet Group 2: ibuprofen (MOTRIN) tablet 600 mgJump to med 600 mg, Oral, Every 6 hours PRN, Starting on Sun07/28/24 at 2156, Until Sun07/29/24 at 1642, mild (1-3) pain , if acetaminophen not available or not ordered; if acetaminophen ordered, 2nd line Or ibuprofen (MOTRIN) 100 mg/5 mL suspension 600 mgJump to med 600 mg, Oral, Every 6 hours PRN, Starting on Sun07/28/24 at 2156, Until Sun07/29/24 at 1642, mild (1-3) pain , if acetaminophen not available or not ordered; if acetaminophen ordered, 2nd line Group 3: ondansetron (ZOFRAN) injection 4 mgJump to med 4 mg, Intravenous, Every 8 hours PRN, nausea, vomiting, if NOT tolerating PO, Starting on Sun07/28/24 at 2156 Or ondansetron (ZOFRAN-ODT) disintegrating tablet 4 mgJump to med 4 mg, Oral, Every 8 hours PRN, Starting on Sun07/28/24 at 2156, Until Sun07/29/24 at 1642, nausea, vomiting, if tolerating PO documented in this encounter Additional Health Concerns Infection Onset Date Last Indicated Resolved Time Rule-Out Respiratory Virus 07/28/2024 07/28/2024 0 07/28/2024 6:26 PM EDT documented as of this encounter Care Teams [employer] Relationship Specialty Start Date End Date None, Pcp, PCP - General 06/07/24 documented as of this encounter
--- OUTSIDE RECORDS SUMMARY | 2024-07-29 18:56 | XMS_ITS | Encounter Summary ---
Author Organization [facility] Address [address] [place] [address] Care Team Providers Care Decoration Checker Name Role Phone FlorinЮлия PROSPER Primary Care Provider [phone] Reason for Visit * Reason Comments Office Visit: Converted Data Conversion Encounter Details Date Type Department Care Team (Late Contact Info) Description 07/06/2020 Dental Interim Note [facility] Dental [address], [address] [place] [address] Default, [facility] Provider [place] Social History Tobacco Use Types Packs/Day Years Used Date Smoking Tobacco: Never Assessed Social Connections Answer Date Recorded Social Connections and Isolation 0 06/22/2020 Financial Resource Strain Answer Date R ecorded Financial Resource Strain 0 2020 Stress Answer Date Recorded Stress 0 06/22/2020 Physical Activity Answer Date Recorded Physical Activity 0 06/22/2020 Food Insecurity Answer Date Recorded Food 0 06/22/2020 Transportation Needs Answer Date Record ed Transportation 0 06/22/2020 Housing Stability Answer Date Recorded Housing 0 06/22/2020 Safety and Environment Answer Date Saqib rded Safety 0 06/22/2020 Utilities Answer Date Recorded Utilities 0 06/22/2020 Employment Answer Date Recorded Employment 0 06/22/2020 Sex and Gender Information Value Date Recorded Sex Assigned at Male 05/31/2023 11:00 AM PST Legal Sex Male 10:56 PM PST Gender Identity Male 05/31/2023 11:00 AM PST Sexual Orientation Choose not to disclose 2023 11:00 AM PST documented as of this encounter Plan of Treatment Upcoming Encounters Date Type Department Care Team (Late Contact Info) Description 08/04/2024 11:45 AM EDT Office Visit [facility] Primary Care [address] [phone] Юлия Catherine NP [address] [place] [phone] 08/04/2024 2:00 PM EDT BH/MH Visits [facility] Behavioral Health [address] [place] [phone] Mercy Olivarez LICSW [address] [address] 08/27/2024 3:00 PM EDT Office Visit [address] [phone] Gina Ortega, [place] [address] documented as of this encounter Visit Diagnoses Not on filedocumented in this encounter Care Teams Decoration Checker Relationship Specialty Start Date End Date Юлия Catherine NP [address] [place] [phone] PCP - General 05/05/24 documented as of this encounter
--- OUTSIDE RECORDS SUMMARY | 2024-07-29 18:56 | XMS_ITS | Clinical Summary ---
Author Organization [facility] Address [address] [place] [phone] Phone Care Team Providers Care Machine Strap Buckler Name Role Phone Unavailable Primary Care Provider Unavailabl e Allergies No known active allergies Medications No known medications Social History Tobacco Use Types Packs/Day Years Used Date Smoking Tobacco: Never Assessed Sex and Gender Information Value Date Recorded Sex Assigned at Not on file Legal Sex Male 12:35 PM EDT Gender Identity Not on file Sexual Orientation Not on file Last Filed Vital Signs Vital Sign Reading Time Taken Comments Blood Pressure - - Pulse - - Temperature 36.5 ??C (97.7 ??F) 01/31/2018 3:11 PM ED T Respiratory Rate - - Oxygen Saturation - - Inhaled Oxygen Concentration - - Weight 74.4 kg (164 lb) 01/31/2018 3:11 PM EDT Height - - Body Mass Index - - Plan of Treatment Health Maintenance Due Date Last Done Comments MMR Vaccines (1 of 1 - Stand abhay series) 2005 Varicella Vaccines (1 of 2 - 13+ 2-dose series) 2017 HPV Vaccines (1 - Male 3-dos e series) 2019 Men B Vaccine (1 of 2 - Standard) 2020 DTaP,Tdap,and Td Vaccines (1 - Tdap) 2022 Hepatitis B Vaccines (1 of 3 - 19+ 3-dose series) 2023 Influenza Vaccines (#1) 2023 COVID-19 Vaccine ( - 2023-2 5 season) 2023 HIB Vaccines Aged Out No longer eligi [...] on patient's age to complete this topic Pneumococcal Vaccine Aged Out No long er eligible based on patient's age to complete this topic
--- OUTSIDE RECORDS SUMMARY | 2024-07-29 18:56 | XMS_ITS | Clinical Summary ---
Author Organization [facility] stark Address [address] [place], [place] [id number] Care Team Providers Care First Assistant Name Role Phone None, Pcp MD Primary Care Provider Unavailabl e Allergies No known active allergies Medications benztropine (COGENTIN) 0.5 MG tablet Take 1 tablet (0.5 mg total) by mouth 2 times a day as needed. 06/23/2023 Active chlorproMAZINE (THORAZINE) 50 MG tablet Take 1 tablet (50 mg total) by mouth at bedtime as needed (insomnia). 05/31/2023 Active Active Problems Problem Noted Date Diagnosed Date Oppositional defiant disorder 11/27/2019 Encounters Date Type Department Care Team Description 07/28/2024 4:02 PM EDT - 07/29/2024 2:41 PM EDT Emergency [facility] Emergency Department [address] [place] [id number] Darius Grubbs MD Treut, MD Raphael Renae Benjamin J, MD Accidental drug overdose, initial encounter (Primary Dx); Leukocytosis, unspecified type; Transient alteration of awareness; Psychosis, unspecified psychosis type (HCC) Discharge Disposition: [facility] Hospital 07/28/2024 Travel 06/29/2024 9:02 PM EST - 07/01/2024 4:51 PM EST Emergency [facility] Emergency Department [address] [place] [id number] Naldo Poon MD Treut, MD Ezra Renae Michael, MD Newcomb, Mark, MD Hedlund, Marc, MD Stonely, Wesley, MD Trecartin, Kyle, MD Encounter for psychiatric assessment (Primary Dx); Homicidal ideation; Bipolar affective disorder, current episode depressed, current episode severity unspecified (HCC) [F31.30] Discharge Disposition: [facility] 06/29/2024 Travel 06/20/2024 7:25 PM EST - 06/24/2024 1:50 PM EST Emergency [facility] Emergency Department [address] [place] [phone] Yassine Culver MD Treut, Peter W, MD De-Matteo, Mark, MD Slakey, John, MD Kaufman, Santos Medina, Keith Mcpherson MD Fairfield, Scott, MD Gacioch, Brian, MD Barker, Kara E, DO Bipolar affective disorder, remission status unspecified (HCC) (Primary Dx) Discharge Disposition: Home or Self Care 06/20/2024 Travel 06/07/2024 5:46 PM EST - 06/11/2024 6:38 PM [facility] Emergency [facility] Emergency Department [address] [place] [phone] Carla Albert, MD Palacios, MD Raphael Andrews, Santos Medina, MD Stewart, MD Humera Cardozo Michael, MD Newcomb, MD Kirstin Morrison Scott, MD Stonely, Wesley, MD Trecartin, MD Joaquin Luevano, Keith Rowland MD Agitation requiring sedation protocol (Primary Dx); Bipolar affective disorder, remission status unspecified (HCC) Discharge Disposition: [facility] 06/07/2024 Travel from Last 3 Months Immunizations Name Administration Dates Next Due Tdap Vaccine (BOOSTRIX/ADACEL) 10/30/2022 Social History Tobacco Use Types Packs/Day Years Used Date Smoking Tobacco: Every Day Cigarettes Tobacco Cessation:Ready to Q uit: Not Asked; Counseling Given: Not Answered Comments:Pt states that when he can't smoke cigarettes or weed he has to have music or he will be inclined to hurt someone. Alcohol Use Standard Drinks/Week Comments Not Currently 0 (1 standard drink = 0.6 oz pure alcohol) denies etoh use, tox negative [facility] Utilities Answer Date Recorded In the past 12 months has [facility] [employer], gas, oil, or water [employer] threatened to shut off services in your [...] any time in the past 12 m [facility], were you homeless or living in a alf (including now)? Patient declined 06/29/2024 Food Insecurity [...] EDT Inhaled Oxygen Concentration - - Weight 97.5 kg (215 lb) 06/29/2024 9:25 PM EST Height 162.6 cm (5' 4 ) 06/29/2024 9:25 PM EST Body Mass Index 36.9 06/29/2024 9:25 PM EST Plan of Treatment Health Maintenance Due Date Last Done Comments Depression Screening 2008 Hepatitis C Screening 2022 Pneumococcal Vaccine: Pediatrics (0 to 5 Years) and At-Risk Patients (6 to 64 Years) (1 of 2 - PCV) 2023 COVID-19 Vaccine ( season) 2023 Influenza Vaccine (Season Ended) 2024 Blood Pressure 07/28/2025 07/29/2024 DTaP,Tdap,and Td Vaccines (9 - Td or Tdap) 10/30/2032 10/30/2022, 01/20/2019, 12/01/2016, Additional history exists Meningococcal Vaccines Aged Out 12/01/2016 No lo nger eligible based on patient's age to complete this topic Procedures Procedure Name Priority Date/Time Associated Diagnosis [...] SCREEN, URINE STAT 07/28/2024 11:27 PM EDT COMPREHENSIVE METABOLIC PANEL STAT 07/28/2024 11:04 PM EDT TROPONIN STAT 07/28/2024 11:04 PM EDT TOXICOLOGY SCREEN, BLOOD STAT 07/28/2024 11:04 PM EDT CBC AND DIFFERENTIAL STAT 07/28/2024 5:37 PM EDT CBC AND DIFFERENTIAL STAT 07/28/2024 5:37 PM EDT SARS COV2/INFLUENZA A/B AND RSV STAT 07/28/2024 5:33 PM EDT LITHIUM LEVEL STAT 07/28/2024 5:20 PM EDT MAGNESIUM STAT 07/28/2024 5:20 PM EDT BASIC METABOLIC PANEL STAT 07/28/2024 5:20 PM EDT ECG 12-LEAD STAT 07/28/2024 4:18 PM EDT Procedure Note - 07/28/2024 4:18 PM EDTThis note is in progress. SINUS TACHYCARDIA NONSPECIFIC T-WAVE ABNORMALITY ABNORMAL RHYTHM ECG ECG 12-LEAD STAT 06/22/2024 1:49 PM EST DRUG SCREEN, URINE STAT 06/21/2024 4: 13 PM EST LABELS FOR EXTRA TUBES Routine 06/20/2024 9:16 PM EST YELLOW TOP Routine 06/20/2024 9:16 PM EST RED TOP Routine 06/20/2024 9:16 PM EST CBC AND DIFFERENTIAL STAT 06/20/2024 9:10 PM EST CBC AND DIFFERENTIAL STAT 06/20/2024 9:10 PM EST MAGNESIUM STAT 06/20/2024 9:10 PM EST BASIC METABOLIC PANEL STAT 06/20/2024 9:10 PM EST DRUG SCREEN, URINE STAT 06/08/2024 1: 21 PM EST CBC AND DIFFERENTIAL STAT 06/08/2024 1:43 AM EST CBC AND DIFFERENTIAL STAT 06/08/2024 1:43 AM EST TOXICOLOGY SCREEN, BLOOD STAT 06/08/2024 1:43 AM EST MAGNESIUM STAT 06/08/2024 1:43 AM EST COMPREHENSIVE METABOLIC PANEL STAT 06/08/2024 1:43 AM EST from Last 3 Months Results * CT Head Without Contrast (07/29/2024 9:26 AM EDT) Anatomical Region Laterality Modality Head Computed Tomogra phy 07/29/2024 9:29 AM EDT Impressions 07/29/2024 9:30 AM EDT No evidence of acute intracranial pathology. Signed By: Eduardo Ferguson on 07/29/2024 9:30 AM on [id number] Narrative 07/29/2024 9:30 AM EDT EXAM: CT [...] Eduardo Ferguson on 07/29/2024 9:30 AM on [id number] us Santos Lim MD IMG CT ORDERABLES Final Re sult * [facility] (07/29/2024 8:48 AM EDT) Pathologist [facility] PST Tube Received 07/29/2024 10:01 AM EDT [facility] Blood PERIPHERAL BLOOD SPECIMEN / Unknown Venipuncture / Unknown 07/29/2024 8:48 AM EDT 07/29/2024 8:48 AM EDT us Santos Lim MD LAB BLOOD ORDERABLES Final Result [facility] [address] [place] [id number], * (ABNORMAL) CBC and Differential (07/29/2024 8:40 AM EDT) Only the most recent of4 resultswithin the time period is included. WBC 14.20(H) 3.90 - 10.80 K/uL 07/29/2024 8:51 AM EDT [facility] RBC 5.00 4.42 - 5.73 M/uL 07/29/2024 8:51 AM T [facility] Hemoglobin 14.6 14.0 - 17.3 g/dL 07/29/2024 8:51 AM EDT [facility] Hematocrit 43.4 40.1 - 51.0 % 07/29/2024 8:51 AM EDT [facility] MCH 29.2 25.6 - 32.2 pg 07/29/2024 8:51 AM [facility] MCHC 33.6 32.0 - 36.0 g/dL 07/29/2024 8:51 AM [facility] MCV 87 83 - 96 fL 07/29/2024 8:51 AM [facility] RDW 12.0 11.5 - 14.0 % 07/29/2024 8:51 AM [facility] Platelet Count 306 154 - 369 K/uL 07/29/2024 8:51 AM [facility] Neutrophil 75.0 % 07/29/2024 8:51 AM [facility] Lymphocyte 14.2 % 07/29/2024 8:51 AM [facility] Monocyte 9.4 % 07/29/2024 8:51 AM [facility] Eosinophil 0.7 % 07/29/2024 8:51 AM [facility] Basophil 0.4 % 07/29/2024 8:51 AM [facility] Immature Granulocyte ([place], Myelo, Promyelocyte) 0.3 % 07/29/2024 8:51 AM [facility] Absolute Neutrophil Count 10.65(H) 1.68 - 7.99 K/uL 07/29/2024 8:51 AM [facility] Absolute Immature Granulocyte ([place], Myelo, Promyelocyte) 0.04 0.00 - 0.09 K/uL 07/29/2024 8:51 AM [facility] Absolute Lymphocyte Count 2.02 0.66 - 4.75 K/uL 07/29/2024 8:51 AM [facility] Absolute Monocyte Count 1.34 0.16 - 1.40 K/uL 07/29/2024 8:51 AM [facility] Absolute Eosinophil Count 0.10 0.00 - 0.60 K/uL 07/29/2024 8:51 AM [facility] Absolute Basophil Count 0.05 0.00 - 0.32 K/uL 07/29/2024 8:51 AM [facility] Blood PERIPHERAL BLOOD SPECIMEN / Unknown Venipuncture / Unknown 07/29/2024 8:40 AM EDT 07/29/2024 8:42 AM EDT us Santos Lim MD LAB BLOOD ORDERABLES Final Result Performing Organization Address [facility]/ZIP Co de Phone Number [facility] [address] [place] [phone], [place] * pH, Venous (07/29/2024 8:38 AM EDT) pH, Venous 7.41 7.33 - 7.43 07/29/2024 9:01 AM EDT [facility] Blood PERIPHERAL BLOOD SPECIMEN / Unknown Venipuncture / Unknown 07/29/2024 8:38 AM EDT 07/29/2024 8:56 AM EDT us Santos Lim MD LAB BLOOD ORDERABLES Final Result Performing Organization Address [facility] de Phone Number [facility] [address] [place] [phone], [place] * (ABNORMAL) CBC (07/29/2024 4:22 AM EDT) WBC 15.35(H) 3.90 - 10.80 K/uL 07/29/2024 4:28 AM [facility] RBC 4.82 4.42 - 5.73 M/uL 07/29/2024 4:28 AM [facility] Hemoglobin 14.2 14.0 - 17.3 g/dL 07/29/2024 4:28 AM [facility] Hematocrit 41.8 40.1 - 51.0 % 07/29/2024 4:28 AM [facility] MCH 29.5 25.6 - 32.2 pg 07/29/2024 4:28 AM [facility] MCHC 34.0 32.0 - 36.0 g/dL 07/29/2024 4:28 AM [facility] MCV 87 83 - 96 fL 07/29/2024 4:28 AM [facility] RDW 12.0 11.5 - 14.0 % 07/29/2024 4:28 AM EDT [facility] Platelet Count 287 154 - 369 K/uL 07/29/2024 4:28 AM EDT [facility] Blood PERIPHERAL BLOOD SPECIMEN / Unknown Venipuncture / Unknown 07/29/2024 4:22 AM EDT 07/29/2024 4:26 AM EDT us Harpreet Carbajal MD LAB BLOOD ORDERABLES Final Resu lt Performing Organization Address [facility] Co de Phone Number [facility] [address] [place] [phone], [place] * [place] Level (07/29/2024 12:33 AM EDT) Only the most recent of2 resultswithin the time period is included. [place] 0.7 0.6 - 1.2 mmol/L 07/29/2024 12:58 AM [facility] Comment:For peroidic testing and in situations of suspected inadequate dosage, sampling should be performed 12 hours after the last dose Blood PERIPHERAL BLOOD SPECIMEN / Unknown Venipuncture / Unknown 07/29/2024 12:33 AM EDT 07/29/2024 12:36 AM EDT us Darius Grubbs MD LAB BLOOD ORDERABLES Final Res ult Performing Organization Address [facility] de Phone Number [facility] [address] [place] [phone], [place] * (ABNORMAL) Drug Screen, Urine (07/28/2024 11:27 PM EDT) Only the most recent of3 resultswithin the time period is included. Amphetamines Screen, Urine Not Detected Not Detected 07/28/2024 11:53 PM [facility] Comment:Positive cut-off con centration 1000 ng/mL Barbiturates Screen, Urine Not Detected Not Detected 07/28/2024 11:53 PM T [facility] Comment:Positive cut-off con centration 200 ng/mL. Benzodiazepine Screen, Urine Not Detected Not Detected 07/28/2024 11:53 PM [facility] Comment: Positive cut-off concentration 200 ng/mL Buprenorphine Screen, Urine Not Detected Not Detected 07/28/2024 11:53 PM [facility] Comment:Positive cut-off con centration 10 ng/mL Cannabinoids Screen, Urine Detected(A) Not Detected 07/28/2024 11:53 PM [facility] Comment:Positive cut-off con centration 50 ng/mL Cocaine Metabolite Screen, Urine Not Detected Not Detected 07/28/2024 11:53 PM [facility] Comment:Positive cut-off con centration 300 ng/mL. Methadone Screen, Urine Not Detected Not Detected 07/28/2024 11:53 PM [facility] Comment:Positive cut-off con centration 300 ng/mL. Opiates Screen, Urine Not Detected Not Detected 07/28/2024 11:53 PM [facility] Comment:Positive cut-off con centration 300 ng/mL. Oxycodone Screen, Urine Not Detected Not Detected 07/28/2024 11:53 PM [facility] Comment:Positive cut-off con centration 300 ng/mL. Propoxyphene Screen, Urine Not Detected Not Detected 07/28/2024 11:53 PM [facility] Comment:Positive cut-off con centration 300 ng/mL. Tricyclics Screen Not Detected Not Detected 07/28/2024 11:53 PM [facility] Comment: Positive cut-off concentration = 300 ng/mL Listed below are the typical positive cutoffs: ? Nortriptyline ? 300 ?Desimipramine ?250 ? Amitriptyline ? 400 ?Doxepin ?550 ? Amoxapine ? 100,000 ?1-Nrfrfvg-Cfdclqnnlp 1,700 ? Chlorpromazine ?1,300 ?Protriptyline ?450 ? Clomipramine ?350 ?Trimipramine ? 1,000 ? Cyclobenzaprine ? 400 ?Imipramine ? 350 Comment 07/28/2024 11:53 PM EDT [facility] Comment: Interpretive Guidelines: ??Immunoassay Urine Drug Screening Screening assays provide preliminary results for medical purposes only. ??Many variables affect duration of detectability; Pharmacokinetics, presence of metabolite(s), patient variability (i.e body mass, state of hydration, diet) short term vs. terminal gauger use of drug, urine pH, route of [...] 11:27 PM EDT 07/28/2024 11:29 PM EDT [facility] - 07/28/2024 11:53 PM EDT Interpretive Guidelines: ??Immunoassay Urine Drug Screening Screening assays provide preliminary results for medical purposes only. ??Many variables affect duration of detectability; Pharmacokinetics, presence of metabolite(s),patient variability (i.e body mass, state of hydration,diet) short term vs. alf use of drug, urine pH, route of [...] us Etelvina WILSON URINE ORDERABLES Final Result [facility] [address] [place] [address], [place] * (ABNORMAL) Toxicology Screen, Plasma (07/28/2024 11:04 PM EDT) Only the most recent of2 resultswithin the time period is included. Acetaminophen Result,Blood <10(L) 10 - 30 ug/mL 07/28/2024 11:30 PM EDT [facility] Comment: Acetaminophen toxic range: ?? Greater than 150 ug/mL at 4 hours after ingestion. ?? Greater than ??75 ug/mL at 8 hours after ingestion. ?? Greater than ??40 ug/mL at 12 hours after ingestion. Alcohol <5 <5 mg/dL 07/28/2024 11:30 PM T [facility] Comment: The Laboratory will now report Ethanol units in mg/dL. To convert results to %, please divide the result by 1000. This is to better comply with the laboratory regulatory agencies. Salicylate Level, Blood <5 4 - 20 mg/dL 07/28/2024 11:30 PM EDT [facility] Comment: Toxic Range: Greater than 30 mg/dl. Patients treated with Sulfasalazine may generate a FALSE HIGH result for Salicylate. Patients treated with Sulfapyridine may generate a FALSE LOW result for Salicylate. Blood PERIPHERAL BLOOD SPECIMEN / Unknown Venipuncture / Unknown 07/28/2024 11:04 PM EDT 07/28/2024 11:10 PM EDT us Darius Grubbs MD LAB BLOOD ORDERABLES Final Res ult Performing Organization Address [facility] de Phone Number [facility] [address] [place] [phone], * Troponin I (07/28/2024 11:04 PM EDT) Pathologist [facility] Troponin I 0.01 <0.03 ng/mL 07/29/2024 8:54 AM EDT [facility] Comment: 99th percentile upper reference limit (URL) <0.03 ng/ml Diagnostic sensitivity / specificity for serial time intervals after symptom onset Hours after symptom onset ?? Sensitivity ?? Specificity < 8 hours ?90% ?91% >=8 hours ?92% ?89% The hallmark of the [place] [employer]'s Third Coventry Definition of [place] (myocardial infarction) is the detection of a rise and/or fall of cardiac biomarker values, with at least one of the values being elevated (i.e., > 99th percentile upper reference limit, URL). Blood PERIPHERAL BLOOD SPECIMEN / Unknown Venipuncture / Unknown 07/28/2024 11:04 PM EDT 07/28/2024 11:10 PM EDT us Santos Lim MD LAB BLOOD ORDERABLES Final Result Performing Organization Address [facility] de Phone Number [facility] [address] [place] [address], [place] * (ABNORMAL) Comprehensive Metabolic Panel (07/28/2024 11:04 PM EDT) Only the most recent of2 resultswithin the time period is included. Pathologist [facility] Sodium 134(L) 136 - 144 mmol/L 07/29/2024 8:54 AM EDT [facility] Potassium 3.5 3.4 - 5.1 mmol/L 07/29/2024 8:54 AM [facility] Chloride 97(L) 101 - 111 mmol/L 07/29/2024 8:54 AM [facility] Total CO2/Bicarbonate 24 22 - 32 mmol/L 07/29/2024 8:54 AM [facility] Anion Gap 13 5 - 15 mmol/L 07/29/2024 8:54 AM [facility] BUN 8 8 - 20 mg/dL 07/29/2024 8:54 AM [facility] Creatinine, Blood 1.09 0.60 - 1.30 mg/dL 07/29/2024 8:54 AM [facility] Glucose, Blood 98 75 - 140 mg/dL 07/29/2024 8:54 AM [facility] Calcium 9.6 8.6 - 10.5 mg/dL 07/29/2024 8:54 AM [facility] Total Protein 8.0(H) 6.1 - 7.9 g/dL 07/29/2024 8:54 AM [facility] Albumin, Blood 4.2 3.5 - 4.8 g/dL 07/29/2024 8:54 AM [facility] AST (SGOT) 24 15 - 41 U/L 07/29/2024 8:54 AM [facility] ALT (SGPT) 21 17 - 63 U/L 07/29/2024 8:54 AM [facility] Alkaline Phosphatase 66 38 - 126 U/L 07/29/2024 8:54 AM [facility] Total Bilirubin 1.0 0.3 - 1.2 mg/dL 07/29/2024 8:54 AM [facility] Estimated GFR(CKD-EPI) 100 mL/min/BS A 07/29/2024 8:54 AM [facility] Comment:This Cr-based equati on underestimates GFR in patients with increased muscle mass. Order CYSTATIN C WITH GFR ESTIMATE, [id number], if additional evaluation of renal function is needed. Blood PERIPHERAL BLOOD SPECIMEN / Unknown Venipuncture / Unknown 07/28/2024 11:04 PM EDT 07/28/2024 11:10 PM EDT us Santos Lim MD LAB BLOOD ORDERABLES Final Result Performing Organization Address [facility] de Phone Number [facility] [address] [place] [phone], [place] * Covid/Flu/RSV (Rapid) (07/28/2024 5:33 PM EDT) Coronavirus SARS-CoV-2 Negative Negative 07/28/2024 6:26 PM EDT [facility] Influenza A Negative Negative 07/28/2024 6:26 PM EDT [facility] Influenza B Negative Negative 07/28/2024 6:26 PM EDT [facility] RSV by PCR Negative Negative 07/28/2024 6:26 PM EDT [facility] Respiratory SWAB OF INTERNAL NOSE / Unknown Collection / Unknown 07/28/2024 5:33 PM EDT 07/28/2024 5:39 PM EDT [facility] - 07/28/2024 6:26 PM EDT Test performed with [employer] GeneXpert SARS-CoV-2 PCR assay, which has received emergency use authorization (EUA) by the U.S. Food and Drug Administration. Negative results do not preclude SARS-CoV-2 infection and should not be used as the sole basis for treatment or other patient management decisions. us Etelvina WILSON BODY FLUIDS AND STOOLS ORDERAB LES Final Result Performing Organization Address [facility] de Phone Number [facility] [address] [place] [id number], [place] * Magnesium (07/28/2024 5:20 PM EDT) Only the most recent of3 resultswithin the time period is included. Magnesium, Blood 1.8 1.8 - 2.5 mg/dL 07/28/2024 5:45 PM EDT [facility] Blood PERIPHERAL BLOOD SPECIMEN / Unknown Venipuncture / Unknown 07/28/2024 5:20 PM EDT 07/28/2024 5:23 PM EDT us Etelvina WILSON LAB BLOOD ORDERABLES Final Res ult [facility] [address] [place] [address], * (ABNORMAL) Basic Metabolic Panel (07/28/2024 5:20 PM EDT) Only the most recent of2 resultswithin the time period is included. Sodium 133(L) 136 - 144 mmol/L 07/28/2024 5:45 PM EDT [facility] Potassium 3.6 3.4 - 5.1 mmol/L 07/28/2024 5:45 PM EDT [facility] Chloride 99(L) 101 - 111 mmol/L 07/28/2024 5:45 PM EDT [facility] Total CO2/Bicarbonat e 23 22 - 32 mmol/L 07/28/2024 5:45 PM [facility] Anion Gap 11 5 - 15 mmol/L 07/28/2024 5:45 PM EDT [facility] BUN 10 8 - 20 mg/dL 07/28/2024 5:45 PM T [facility] Creatinine, Blood 1.05 0.60 - 1.30 mg/dL 07/28/2024 5:45 PM EDT [facility] Glucose, Blood 98 75 - 140 mg/dL 07/28/2024 5:45 PM [facility] Calcium 9.6 8.6 - 10.5 mg/dL 07/28/2024 5:45 PM T [facility] Estimated GFR(CKD-EPI) 104 mL/min/BSA 07/28/2024 5:45 PM [facility] Comment:Estimated GFR (CKD-E PI Refit 2020) units mL/min/1.73m^2 Blood PERIPHERAL BLOOD SPECIMEN / Unknown Venipuncture / Unknown 07/28/2024 5:20 PM EDT 07/28/2024 5:23 PM EDT us Etelvina WILSON LAB BLOOD ORDERABLES Final Res ult [facility] [address] [place] [address], [place] * ECG 12 lead, to be obtained, other indication (06/22/2024 1:49 PM EST) Ventricular Heart Rate 89 BPM EKG BUR MUSE MT Interval 172 ms EKG BUR MUSE QRSD Interval 86 ms EKG B[facility] MUSE QT Interval 316 ms EKG B[facility] MUSE QTC Interval 384 ms EKG B[facility] MUSE P [place] 45 degrees EKG BUR MUSE R [place] 83 degrees EKG BUR MUSE T Wave [place] 13 degrees EKG BUR MUSE 06/22/2024 1:49 PM EST 06/25/2024 10:44 PM EST Narrative EKG BUR MUSE - 06/25/2024 10:44 PM EST SINUS RHYTHM NONSPECIFIC ST & T-WAVE ABNORMALITY BORDERLINE ECG Confirmed by Ryan Salazar ([id number]) on 06/25/2024 10:44:53 PM Procedure Note Ryan Salazar MD - 06/25/[address] & T-WAVE ABNORMALITY BORDERLINE ECG Confirmed by Ryan Salazar ([id number]) on 06/25/2024 10:44:53 PM us Keith Nuñez MD ECG ORDERABLES Final Result Performing Organization Address [facility]/ZIP Co de Phone Number EKG BUR MUSE [address] [place] [address] * Gold Top (06/20/2024 9:16 PM EST) Pathologist [facility] Gold Top Tube Received 06/20/2024 11:01 PM EST [facility] Blood PERIPHERAL BLOOD SPECIMEN / Unknown Venipuncture / Unknown 06/20/2024 9:16 PM EST 06/20/2024 9:16 PM EST us Yassine Culver MD LAB BLOOD ORDERABLES Final Res ult Performing Organization Address City/[facility]/ZIP Co de Phone Number [facility] [address] [place] [address], [place] * Red Top (06/20/2024 9:16 PM EST) Red Top Tube Received 06/20/2024 11:01 PM EST [facility] Blood PERIPHERAL BLOOD SPECIMEN / Unknown Venipuncture / Unknown 06/20/2024 9:16 PM EST 06/20/2024 9:16 PM EST us Yassine Culver MD LAB BLOOD ORDERABLES Final Res ult Performing Organization Address City/State/[facility] Co de Phone Number [facility] [address] [place] [address], [place] from Last 3 Months Insurance [place] [address] [place], [place] [address] Care Teams First Assistant Relationship Specialty Start Date End Date None, Pcp, PCP - General 06/07/24
--- OUTSIDE RECORDS SUMMARY | 2024-07-29 18:56 | XMS_ITS | Encounter Summary ---
Author Organization [facility] Address [address] [place] [address] Care Team Providers Care Catalyst Plant Supervisor Name Role Phone None, Pcp Primary Care Provider Unavailabl e Encounter Details Date Type Department Care Team (Latest Contact Info) Description 07/28/2024 Travel Social History Tobacco Use Types Packs/Day Years Used Date Smoking Tobacco: Every Day Cigarettes Comments:Pt states that when he can't smoke cigarettes or weed he has to have music or he will be inclined to hurt someone. Alcohol Use Standard Drinks/Week Comments Not Currently 0 (1 standard drink = 0.6 oz pure alcohol) denies etoh use, tox negative [facility] Utilities Answer Date Recorded In the past 12 months has th e electric, gas, oil, or water [employer] threatened to shut off services in your [...] any time in the past 12 m [facility], were you homeless or living in a nursing home (including now)? Patient declined 06/29/2024 Food Insecurity [...] on file documented as of this encounter Functional Status * Are you [...] EDT Ann Tyler documented in this encounter Plan of Treatment Not on file documented as of this encounter Visit Diagnoses Not on filedocumented in this encounter Additional Health Concerns Infection Onset Date Last Indicated Resolved Time Rule-Out Respiratory Virus 07/28/2024 07/28/2024 0 07/28/2024 6:26 PM EDT documented as of this encounter Care Teams Catalyst Plant Supervisor Relationship Specialty Start Date End Date None, Pcp, PCP - General 06/07/24 documented as of this encounter
--- OUTSIDE RECORDS SUMMARY | 2024-07-29 18:56 | XMS_ITS | Clinical Summary ---
Author Organization [facility] [employer] [facility] Address [address] [place] [address] Care Team Providers Care Credit Union Examiner Name Role Phone Unavailable Primary Care Provider Unavailabl e Social History Tobacco Use Types Packs/Day Years Used Date Smoking Tobacco: Never Assessed Sex and Gender Information Value Date Recorded Sex Assigned at Not on file Legal Sex Male 2:57 PM EST Gender Identity Not on file Sexual Orientation Not on file Last Filed Vital Signs Vital Sign Reading Time Taken Comments Blood Pressure - - Pulse 75 06/02/2020 11:44 AM EST Temperature 36.4 ??C (97.6 ??F) 06/02/2020 11:[address] Respiratory Rate - - Oxygen Saturation 98% 06/02/2020 11:44 AM EST Inhaled Oxygen Concentration - - Weight - - Height - - Body Mass Index - - Plan of Treatment Health Maintenance Due Date Last Done Comments Depression: Screening Annual ly using PHQ-2/9 in Adults 18 yrs or above (or HM Modifier)([facility]) 2022 Hepatitis C Virus Infection in Adolescents and Adults: Screening (or Modifier) ([facility]) 2022 SDOH Screening Reminder: Geovanna torres for all adults ([facility]) 2022 Tobacco Smoking Cessation: i n Adults excluding Women: Behavioral and Pharmacotherapy Interventions ([facility]) 2022 DTaP/Tdap/Td Vaccines ([facility]) (1 - Tdap) 2023 Flu Vaccination: Yearly for ages 18mos through 64 years (or Modifier)([facility]) 11/29/2023 COVID-19 Vaccine Screening: Initial Series and Booster Status ([facility]) ( - 2023- season) 2023 Lipid Screening: Once for Me n aged 20 to 35 yrs ([facility]) 2024 Zoster/Shingles Vaccine Seri es Screening: Adults aged 18+ yrs (or HM Modifiers)([facility]) (1 of 2) 2054 Pneumococcal Vaccination Scr eening: Pts 0-19 & 19-49 yrs of age ([facility]) Aged Out No longer eligible based on patient's age to complete this topic Medical Devices Not on file
[2024-07-29 20:00] VITALS: BP 130/70; PULSE 72; RESP 16; TEMP 36.7; O2SAT 98
[2024-07-29 20:46] LABS: Alanine Aminotransferase 22 U/L (0-40); Albumin Level 4.6 g/dL (3.5-5.0); Alkaline Phosphatase 80 U/L (39-117); Anion Gap 13 (12-20); Aspartate Amino Transferase 26 U/L (5-37); Bilirubin Total 0.4 mg/dL (0.0-1.0); Blood Urea Nitrogen 9 mg/dL (9-16); Calcium 9.7 mg/dL (8.4-10.2); Carbon Dioxide 24 mmol/L (22-29); Chloride 104 mmol/L (96-108); Creatinine Clr Calc Pharmacy 134.7; Estimated Glomerular Filt Rate > 60; Glucose Random 96 mg/dL (60-115); Potassium 3.6 mmol/L (3.3-5.1); Sodium 137 mmol/L (135-145)
--- NOTE | 2024-07-29 20:53 | HO.PM.IMCN ---
History of Present Illness Data of Consult Service Date: 07/29/24 Requesting physician: Dayna Shaffer Primary Care Provider: None Physician HPI Reason for consult: Medical H&P Patient without any known past medical history admitted to adult Psychiatry with consult placed to hospitalist service for medical H&P. The patient comes from [place] and reportedly has been in and out of ERs due to agitation and psychosis. Yesterday, he presented to the ED after having taken another person's lithium 900 mg, Haldol, and Cogentin x 3 days. He was not aware that these medications were not his own. He had been behaving erratically and required restraint on multiple occasions while in the ED. today he is quite sedated and unsteady. On exam, he is lying in bed but does open eyes to touch and voice otherwise unresponsive offering no history. He is currently on a 1:1 due to behaviors. His tech reports that while eating he was complaining food was getting stuck and having difficulty swallowing but was tolerating liquids fine. Reviewed ER records from [place] which shows a chronically elevated white blood cell count ranging from 14-17. Differential without significant abnormality. There has been no evidence of infection. No anemia or thrombocytopenia. Renal function normal, electrolyte levels normal. [place] level 0.9. EKG showed sinus tachycardia with rate 108 and nonspecific T-wave abnormalities. Urine tox screen positive only for THC. Head CT negative for any acute intracranial abnormality. Review of Systems Review of Systems: Yes Unobtainable due to mental status PMFSH Social History Household Members: Unknown / Unable to assess Housing: Homeless Do you presently have visiting nurse or other home services: No Patient Tobacco Use Status: Tobacco use Unknown Use of substances other than those prescribed or required for medical reasons: Yes Substance Use Type: Marijuana Other Past Substance Use Problem:: Grandmother reports substance use. Toxicology from facility +THC only Advance Directives: No Advance Directives Information Provided: No Recently lost weight without trying: Unsure Nutrition Risks: No Nutritional Risk Meds Allergies Allergy/AdvReac Type Severity Reaction Status Date / Time No Known Allergies Allergy Verified 07/29/24 17:02 Active Medications: Current Medications Acetaminophen (Acetaminophen 325 Mg Tablet) 650 mg PO Q6H PRN PRN Reason: Headache/Pain, Scale 1-10 Al Hydroxide/Mg Hydroxide (Magnesium Hydrox/Alum Hydrox 30 Ml Oral.Susp) 30 ml PO Q6H PRN PRN Reason: Heartburn/Nausea Hydroxyzine HCl (Hydroxyzine Hcl 25 Mg Tablet) 25 mg PO Q6H PRN PRN Reason: mild anxiety Magnesium Hydroxide (Milk Of Magnesia 30 Ml Oral.Susp) 30 ml PO DAILY PRN PRN Reason: Constipation Nicotine Polacrilex (Nicotine Polacrilex 2 Mg Gum) 4 mg BUCCAL Q2H PRN PRN Reason: Nicotine Cravings Last Admin: 07/29/24 17:40 Dose: 4 mg Olanzapine (Olanzapine 5 Mg Tablet) 5 mg PO Q4H PRN PRN Reason: agitation Olanzapine (Olanzapine Odt 10 Mg Tab.Rapdis) 10 mg TRANSLINGU BID ANGEL Last Admin: 07/29/24 20:19 Dose: 10 mg Trazodone HCl (Trazodone Hcl 50 Mg Tablet) 50 mg PO BEDTIME MRX1 PRN PRN Reason: Insomnia Physical Exam Vital Signs and Narrative: Vital Signs: Last Vital Signs Temp 98.4 F 07/29/24 17:32 Pulse 103 H 07/29/24 17:32 Resp 18 07/29/24 17:32 BP 171/92 H 07/29/24 17:32 Pulse Ox 99 07/29/24 17:32 O2 Del Method Room Air 07/29/24 17:32 BMI result Body Mass Index 35.0 Constitutional - Awake and Alert, No apparent distress Eyes - PERRLA, EOMI Mouth : Open and very dry with tongue fasciculations Cardiovascular - S1S2, RRR, No edema Respiratory - Normal lung expansion, Normal respiratory effort, No respiratory distress, CTA bilaterally Gastrointestinal - NT / ND; +BS; No rebound or guarding - No CVA tenderness Extremities - no calf tenderness bilaterally, no swelling Musculoskeletal - Normal inspection, normal ROM Skin - Warm/Dry Neurological - somnolent and barely arousable to voice and tactile stimulus, not answering questions but following commands. CN II-XII in tact, 5/5 strength BUE and BLE. Somewhat tremulous Psychological - Appropriate affect Results Labs 07/29/24 20:17 Labs: Laboratory Results - last 24 hr 07/29/24 20:17 Anion Gap 13 Estim Creat Clear Calc 134.7 Estimated GFR > 60 Random Glucose 96 Calcium 9.7 Total Bilirubin 0.4 AST 26 ALT 22 Alkaline Phosphatase 80 Total Protein 8.0 Albumin 4.6 Assessment and Plan (1) Routine medical exam: Status: Acute Plan Patient without any known past medical history admitted to adult Psychiatry with consult placed to hospitalist service for medical H&P. Erratic behavior/agitation Plan per Psychiatry Sedation Likely medication induced Dysphagia suspect related to dry mouth due to effects of medication However, VIRTUAL REALITY SPECIALIST eval ordered Chronic leukocytosis No evidence of infection, ? Related to agitation Outpatient follow-up with Hematology if no improvements Thank you for allowing me to participate in this consult. Signing off at this time. Please do not hesitate to call for further questions or for any acute medical issues
[2024-07-30] MEDS: hydrOXYzine HCL 25 MG TABLET PO ×4 (04:11→21:13)
[2024-07-30] MEDS: OLANZapine 5 MG TABLET PO ×3 (04:47→23:59)
[2024-07-30] MEDS: OLANZapine ODT 10 MG TAB.RAPDIS TRANSLINGU ×2 (09:30→21:13)
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
--- NOTE | 2024-07-30 14:28 | MHC.SLORD ---
Speech Language Pathology Order Status: CAR AUDIO INSTALLER went to see pt in afternoon, RN consulted. Pt was medicated, sleeping soundly. RN requested CAR AUDIO INSTALLER return. Pt tolerating liquids per report, but observed to have moderate oral phase dysphagia d/t anterior loss, which prompted swallow evaluation request.
[2024-07-30] MEDS: clonazePAM 0.5 MG TABLET PO ×4 (15:05→23:59)
[2024-07-30 19:59] VITALS: BP 161/94; PULSE 114; RESP 20; TEMP 36.4; O2SAT 99
[2024-07-30] MEDS: traZODone HCL 50 MG TABLET PO (21:13)
[2024-07-31] MEDS: hydrOXYzine HCL 25 MG TABLET PO (03:59)
[2024-07-31] MEDS: OLANZapine 5 MG TABLET PO ×3 (03:59→16:37)
[2024-07-31] MEDS: clonazePAM 0.5 MG TABLET PO ×4 (03:59→20:43)
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
[2024-07-31] MEDS: OLANZapine ODT 10 MG TAB.RAPDIS TRANSLINGU ×2 (10:10→20:42)
[2024-07-31 10:11] VITALS: BP 146/93; PULSE 83; RESP 16; TEMP 36.2; O2SAT 97
[2024-07-31] MEDS: Nicotine Polacrilex 2 MG GUM 4 MG BUCCAL ×2 (11:06→16:37)
--- NOTE | 2024-07-31 13:50 | MHC.SL.SWA ---
Speech Pathologist Impression: WFL Risk of Aspiration Due to: Dysphasia Diet Status: Liquid Consistency and Strategies for Safe Swallow: Liquid Intake Recommendation: Thin Liquid Intake Strategies: Solid Food Consistency: Dietary Recommendations: Regular Additional Modifications to Solid Foods: Oral Medication Intake: Whole with Liquid Please contact the pharmacy regarding appropriate crushable or liquid drug formulations that are available whenever modified delivery is recommended. Compensatory Strategies and Precautions to be Taken for Safe Swallow: Sitting Upright (90 deg) Liquids from Cup Liquids from Straw Small Bites and Sips Supervision While Eating and Drinking for Safe Swallow: Intermittent Supervision Foods to Avoid: Swallowing Recommended Treatments: Recommendation for Speech: NA:Typical Evaluation Comment: Patient was reclined in his bed in his room, lunch tray still present, with about 1/2 food on tray eaten. RN was present throughout this evaluation. Patient initially refused, but when asked specifically to drink some of the milk from tray, sat up. As DELIVERY DIRECTOR was opening carton, patient started yelling expletives at DELIVERY DIRECTOR, RN warned take that as a no, but patient then accepted carton from DELIVERY DIRECTOR and drank from it producing normal swallow no clinical signs of aspiration. Since incident on admission (eating too quickly, cramming food, coughing and spitting out food) patient has been tolerating diet without behaviors. Recommend continue on current, least restrictive diet of Regular with thin liquids, pills whole with liquid. No further DELIVERY DIRECTOR service needed, DELIVERY DIRECTOR will DC. Please recontact if any additional concerns arise. Frequency/Duration: Date Range for Service Req: Timeline to reassess: Python Django Developer Clinican/Clinical Fellow: No Supervisory Statement: I have reviewed and agree with the student/clinical fellow's documentation: N/A Speech Language Pathologist: Leslie Pete M.A., [facility]-DELIVERY DIRECTOR
[2024-07-31 20:00] VITALS: BP 119/74; PULSE 109; RESP 16; TEMP 36.4
[2024-07-31] MEDS: traZODone HCL 50 MG TABLET PO ×2 (20:42)
[2024-08-01] MEDS: OLANZapine ODT 10 MG TAB.RAPDIS TRANSLINGU ×2 (09:31→21:38)
[2024-08-01] MEDS: clonazePAM 0.5 MG TABLET PO ×5 (09:31→21:38)
[2024-08-01 10:51] VITALS: BP 116/78; PULSE 84
[2024-08-01] MEDS: Propranolol HCL 10 MG TABLET 5 MG PO ×3 (10:51→21:36)
[2024-08-01 15:22] VITALS: BP 126/74; PULSE 66
[2024-08-01 20:00] VITALS: BP 129/79; PULSE 91; RESP 16; TEMP 36.6; O2SAT 97
[2024-08-01 21:36] VITALS: BP 130/80; PULSE 80
--- NOTE | 2024-08-01 23:20 | P.PNPSI_ITS ---
Subjective Subjective Date of Service: 08/01/24 Reason For Visit: bipolar disorder cannabis use Interim History: met with pt; discussed with team pt says doing better still and shakes are less, though still present; added propranolol which is helping. Pt says has [facility] but has not met with in a while; wants team to contact them. Also says had court hearing 07/28 and gave fireworks assembly supervisor name asking team to call. Pt says he's homeless. Agrees to remain on unit for continued treatment of dyskinesia and to get back on meds saying he's normally on zyprexa and depakote. Mental Status Exam Mental Status Exam Narrative: Pt is alert and oriented; behavior is cooperative, friendly, calm; patient is not in distress; dressed in hospital attire, disheveled; mood is described as okl and affect congruent, brighter; eye contact appropriate; Speech is normal rate, volume and prosody and not pressured; dyskinesia but no psychomotor agitation/retardation present; thought process is goal directed; Thought content is on tx; otherwise pertinent to relevant topics and without any delusional content, paranoid ideations or grandiosity; denies any SI/HI. Denies AVH and there is no evidence of perceptual disturbance. Patients insight and judgment fair. Diagnostics Vital Signs (24Hr): Vital Signs - 24 hr 08/01/24 10:51 08/01/24 15:22 08/01/24 20:00 Temperature 97.8 F Pulse Rate 84 66 91 Respiratory Rate 16 Blood Pressure 116/78 126/74 129/79 Pulse Oximetry 97 Oxygen Delivery Method Room Air 08/01/24 21:36 Temperature Pulse Rate 80 Respiratory Rate Blood Pressure 130/80 Pulse Oximetry Oxygen Delivery Method BMI result Body Mass Index 35.0 Labs 07/29/24 20:17 Medications Medications Current Medications Acetaminophen (Acetaminophen 325 Mg Tablet) 650 mg PO Q6H PRN PRN Reason: Headache/Pain, Scale 1-10 Al Hydroxide/Mg Hydroxide (Magnesium Hydrox/Alum Hydrox 30 Ml Oral.Susp) 30 ml PO Q6H PRN PRN Reason: Heartburn/Nausea Clonazepam (Clonazepam 0.5 Mg Tablet) 0.5 mg PO TID ANGEL Last Admin: 08/01/24 21:38 Dose: 0.5 mg Clonazepam (Clonazepam 0.5 Mg Tablet) 0.5 mg PO TID PRN PRN Reason: breakthu anxiety/EPS/Shakiness Last Admin: 08/01/24 18:35 Dose: 0.5 mg Hydroxyzine HCl (Hydroxyzine Hcl 25 Mg Tablet) 25 mg PO Q6H PRN PRN Reason: mild anxiety Last Admin: 07/31/24 03:59 Dose: 25 mg Magnesium Hydroxide (Milk Of Magnesia 30 Ml Oral.Susp) 30 ml PO DAILY PRN PRN Reason: Constipation Nicotine Polacrilex (Nicotine Polacrilex 2 Mg Gum) 4 mg BUCCAL Q2H PRN PRN Reason: Nicotine Cravings Last Admin: 07/31/24 16:37 Dose: 4 mg Olanzapine (Olanzapine 5 Mg Tablet) 5 mg PO Q4H PRN PRN Reason: agitation Last Admin: 07/31/24 16:37 Dose: 5 mg Olanzapine (Olanzapine Odt 10 Mg Tab.Rapdis) 10 mg TRANSLINGU BID ANGEL Last Admin: 08/01/24 21:38 Dose: 10 mg Propranolol HCl (Propranolol Hcl 10 Mg Tablet) 5 mg PO TID ANGEL; Protocol Last Admin: 08/01/24 21:36 Dose: 5 mg Trazodone HCl (Trazodone Hcl 50 Mg Tablet) 50 mg PO BEDTIME MRX1 PRN PRN Reason: Insomnia Last Admin: 07/31/24 20:42 Dose: 50 mg Allergies Allergies Allergy/AdvReac Type Severity Reaction Status Date / Time No Known Allergies Allergy Verified 07/29/24 17:02 Assessment & Plan Assessment & Plan (1) Bipolar disorder, unspecified: Status: Acute Code(s): F31.9 - Bipolar disorder, unspecified (2) Polysubstance abuse: Status: Acute Code(s): F19.10 - Other psychoactive substance abuse, uncomplicated Plan Patient is a 19-year-old male with history of bipolar disorder, aggressive/assaultive behavior, substance abuse who presents after taking someone else's medications and expressing some vague SI. Patient was discharged from psychiatric hospital; he went to orange picking supervisor his medications at the pharmacy who gave him the wrong medications, someone else's prescription of lithium, Haldol and Cogentin. Patient took these medications for 3 days, seemingly aware that he was doing so. Patient's became sedated and somehow went to the emergency room; elevated WBCs though lithium level was WNL and no toxicity. While in the emergency room, he was asked if he had any suicide ideation and patient apparently indicated that he did by drawing a finger across his neck. On admission to M5 unit, patient is calm, drowsy and in behavioral control. Patient says to commercial insurance underwriter that he does not really want to talk but is willing share that he is not suicidal, no HI and no AVH; he says he just needs to rest and chill and complains of body shakiness; patient agrees to clonazepam to help with medication side effects. Formulation/clinical reasoning: Patient mildly dysregulated initially with vague SI (now resolved) in the face of taking someone else's medications; no indication of intentional overdose though it seems patient may have known these were not his medications. Currently patient is calm and dealing with side effects of too much Haldol (lithium levels WNL). Patient restarted on home medications of Zyprexa but also started on clonazepam to help with what seemed to be EPS side effects of akathisia or dyskinesia. Patient on a 12 B says he does not want to stay long hospital course: 07/31 says feeling a little better; no SI at all; shakes are less but remain; says he thinks he wants to dc on sunday but not sure -remains in good behavioral and impulse control 4 pt says doing better still and shakes are less, though still present; added propranolol which is helping. Pt says has [facility] but has not met with in a while; wants team to contact them. Also says had court hearing 07/28 and gave fireworks assembly supervisor name asking team to call. Pt says he's homeless. Agrees to remain on unit for continued treatment of dyskinesia and to get back on meds saying he's normally on zyprexa and depakote. Plan: CV q15's (remains in good behavioral control) continue Zyprexa 10mg BID will restart depakote but hold off until tomorrow since still overcoming side- effects of excess haldol adding propranolol 5mg tid to help mitigate dyskinesia Clonazepam 0.5 mg t.i.d. scheduled Working on collateral Reviewed labs from sending facility: [place] level 0.7 and on recheck after 8 hours did not rise Sodium 134, otherwise lytes, BUN/creatinine WNL Calcium WNL LFTs WNL UDS negative Magnesium 1.8 [place] 0.9 WBCs initially 17 but trended down to 14; otherwise CBC WNL Dysphagia suspect related to dry mouth due to effects of medication However, CITY CLERK eval ordered Chronic leukocytosis No evidence of infection, ? Related to agitation Outpatient follow-up with Hematology if no improvements Patient educated on: diagnosis, medication risk/benefits and medical condition Informed Consent: understands Reason for continued inpatient stay Substantial Risk for: rapid decompensation Time Spent With Patient Time: Total time managing care of this patient today ____ minutes.
[2024-08-02 08:35] VITALS: BP 127/76; PULSE 83; RESP 16; TEMP 37; O2SAT 98
[2024-08-02] MEDS: clonazePAM 0.5 MG TABLET PO ×4 (08:36→20:09)
[2024-08-02] MEDS: OLANZapine ODT 10 MG TAB.RAPDIS TRANSLINGU ×2 (08:36→20:10)
[2024-08-02] MEDS: Propranolol HCL 10 MG TABLET 5 MG PO ×3 (08:36→20:09)
--- NOTE | 2024-08-02 12:08 | P.PNPSI_ITS ---
Subjective Subjective Date of Service: 08/02/24 Reason For Visit: bipolar disorder cannabis use Interim History: Met with patient; discussed with team Patient said that he is overall doing fine. He says he is bored' but feels safe on the unit. He is sleeping well. Says shakes are better still. Discussed outpatient regimen and agreed to start Depakote. Patient said he really wants his team to get in touch with is [facility] workers Mental Status Exam Mental Status Exam Narrative: Pt is alert and oriented; behavior is cooperative, friendly, calm; patient is not in distress; dressed in hospital attire, unkempt; mood is described as ok... Bored affect overall brighter, calm; eye contact appropriate; Speech is normal rate, volume and prosody and not pressured; intermittent dyskinesia, but less; no psychomotor agitation/retardation present; thought process is goal directed; Thought content is on tx; otherwise pertinent to relevant topics and without any delusional content, paranoid ideations or grandiosity; denies any SI/HI. Denies AVH and there is no evidence of perceptual disturbance. Patients insight and judgment fair. Diagnostics Vital Signs (24Hr): Vital Signs - 24 hr 08/01/24 15:22 08/01/24 20:00 08/01/24 21:36 Temperature 97.8 F Pulse Rate 66 91 80 Respiratory Rate 16 Blood Pressure 126/74 129/79 130/80 Pulse Oximetry 97 Oxygen Delivery Method Room Air 08/02/24 08:35 Temperature 98.6 F Pulse Rate 83 Respiratory Rate 16 Blood Pressure 127/76 Pulse Oximetry 98 Oxygen Delivery Method Room Air BMI result Body Mass Index 35.0 Labs 07/29/24 20:17 Medications Medications Current Medications Acetaminophen (Acetaminophen 325 Mg Tablet) 650 mg PO Q6H PRN PRN Reason: Headache/Pain, Scale 1-10 Al Hydroxide/Mg Hydroxide (Magnesium Hydrox/Alum Hydrox 30 Ml Oral.Susp) 30 ml PO Q6H PRN PRN Reason: Heartburn/Nausea Clonazepam (Clonazepam 0.5 Mg Tablet) 0.5 mg PO TID ANGEL Stop: 08/02/24 23:00 Last Admin: 08/02/24 08:36 Dose: 0.5 mg Clonazepam (Clonazepam 0.5 Mg Tablet) 0.5 mg PO TID PRN PRN Reason: breakthu anxiety/EPS/Shakiness Last Admin: 08/01/24 18:35 Dose: 0.5 mg Divalproex Sodium (Divalproex Sodium Er 500 Mg Tab.Er.24h) 500 mg PO BEDTIME ANGEL Hydroxyzine HCl (Hydroxyzine Hcl 25 Mg Tablet) 25 mg PO Q6H PRN PRN Reason: mild anxiety Last Admin: 07/31/24 03:59 Dose: 25 mg Magnesium Hydroxide (Milk Of Magnesia 30 Ml Oral.Susp) 30 ml PO DAILY PRN PRN Reason: Constipation Nicotine Polacrilex (Nicotine Polacrilex 2 Mg Gum) 4 mg BUCCAL Q2H PRN PRN Reason: Nicotine Cravings Last Admin: 07/31/24 16:37 Dose: 4 mg Olanzapine (Olanzapine 5 Mg Tablet) 5 mg PO Q4H PRN PRN Reason: agitation Last Admin: 07/31/24 16:37 Dose: 5 mg Olanzapine (Olanzapine Odt 10 Mg Tab.Rapdis) 10 mg TRANSLINGU BID ANGEL Last Admin: 08/02/24 08:36 Dose: 10 mg Propranolol HCl (Propranolol Hcl 10 Mg Tablet) 5 mg PO TID ANGEL; Protocol Last Admin: 08/02/24 08:36 Dose: 5 mg Trazodone HCl (Trazodone Hcl 50 Mg Tablet) 50 mg PO BEDTIME MRX1 PRN PRN Reason: Insomnia Last Admin: 07/31/24 20:42 Dose: 50 mg Allergies Allergies Allergy/AdvReac Type Severity Reaction Status Date / Time No Known Allergies Allergy Verified 07/29/24 17:02 Assessment & Plan Assessment & Plan (1) Bipolar disorder, unspecified: Status: Acute Code(s): F31.9 - Bipolar disorder, unspecified (2) Polysubstance abuse: Status: Acute Code(s): F19.10 - Other psychoactive substance abuse, uncomplicated Plan Patient is a 19-year-old male with history of bipolar disorder, aggressive/assaultive behavior, substance abuse who presents after taking someone else's medications and expressing some vague SI. Patient was discharged from psychiatric hospital; he went to tack picker his medications at the pharmacy who gave him the wrong medications, someone else's prescription of lithium, Haldol and Cogentin. Patient took these medications for 3 days, seemingly aware that he was doing so. Patient's became sedated and somehow went to the emergency room; elevated WBCs though lithium level was WNL and no toxicity. While in the emergency room, he was asked if he had any suicide ideation and patient apparently indicated that he did by drawing a finger across his neck. On admission to M5 unit, patient is calm, drowsy and in behavioral control. Patient says to typewriter assembly and parts inspector that he does not really want to talk but is willing share that he is not suicidal, no HI and no AVH; he says he just needs to rest and chill and complains of body shakiness; patient agrees to clonazepam to help with medication side effects. Formulation/clinical reasoning: Patient mildly dysregulated initially with vague SI (now resolved) in the face of taking someone else's medications; no indication of intentional overdose though it seems patient may have known these were not his medications. Currently patient is calm and dealing with side effects of too much Haldol (lithium levels WNL). Patient restarted on home medications of Zyprexa but also started on clonazepam to help with what seemed to be EPS side effects of akathisia or dyskinesia. Patient on a 12 B says he does not want to stay long hospital course: 07/31 says feeling a little better; no SI at all; shakes are less but remain; says he thinks he wants to dc on sunday but not sure -remains in good behavioral and impulse control 08/01 pt says doing better still and shakes are less, though still present; added propranolol which is helping. Pt says has [facility] but has not met with in a while; wants team to contact them. Also says had court hearing 07/28 and gave vice president of software development name asking team to call. Pt says he's homeless. Agrees to remain on unit for continued treatment of dyskinesia and to get back on meds saying he's normally on zyprexa and depakote. 08/02 Patient said that he is overall doing fine. He says he is bored' but feels safe on the unit. He is sleeping well. Says shakes are better still. Discussed outpatient regimen and agreed to start Depakote. Patient said he really wants his team to get in touch with is [facility] workers patient remains in good behavioral and impulse control; appropriate with peers and staff Plan: CV q15's (remains in good behavioral control) continue Zyprexa 10mg BID Started depakote ER 500 mg q.h.s. (did not know outpatient dose) adding propranolol 5mg tid to help mitigate dyskinesia Will likely lower Clonazepam 0.5 mg and then taper Working on collateral Reviewed labs from sending facility: [place] level 0.7 and on recheck after 8 hours did not rise Sodium 134, otherwise lytes, BUN/creatinine WNL Calcium WNL LFTs WNL UDS negative Magnesium 1.8 [place] 0.9 WBCs initially 17 but trended down to 14; otherwise CBC WNL Dysphagia: Only due to patient being sedated from medications; no trouble eating -patient refused swallow eval however no longer warranted Patient educated on: diagnosis, medication risk/benefits and medical condition Informed Consent: understands Reason for continued inpatient stay Substantial Risk for: rapid decompensation Time Spent With Patient Time: Total time managing care of this patient today ____ minutes.
[2024-08-02 15:55] VITALS: BP 132/71; PULSE 97
[2024-08-02] MEDS: hydrOXYzine HCL 25 MG TABLET PO (18:44)
[2024-08-02 20:00] VITALS: BP 140/90; PULSE 110; RESP 16; TEMP 36.9; O2SAT 96
[2024-08-02] MEDS: Nicotine Polacrilex 2 MG GUM 4 MG BUCCAL (20:00)
[2024-08-02] MEDS: Divalproex Sodium ER 500 MG TAB.ER.24H PO (20:09)
[2024-08-02] MEDS: traZODone HCL 50 MG TABLET PO (20:56)
[2024-08-02] MEDS: OLANZapine 5 MG TABLET PO (20:56)
[2024-08-03 08:19] VITALS: BP 120/66; PULSE 74
[2024-08-03] MEDS: OLANZapine ODT 10 MG TAB.RAPDIS TRANSLINGU ×2 (08:19→19:32)
[2024-08-03] MEDS: Propranolol HCL 10 MG TABLET 5 MG PO ×3 (08:19→19:32)
[2024-08-03] MEDS: OLANZapine 5 MG TABLET PO (11:17)
--- NOTE | 2024-08-03 14:05 | P.PNPSI_ITS ---
Subjective Subjective Date of Service: 08/03/24 Reason For Visit: bipolar disorder cannabis use Interim History: Met with patient; discussed with team Patient remains stable, in good behavioral and impulse control. Continues to say that shakiness is better. Asking questions about aftercare and hoping to discharge as soon as his [facility] team can be contacted -clonazepam changed to p.r.n. Mental Status Exam Mental Status Exam Narrative: Pt is alert and oriented; behavior is cooperative, friendly, calm; patient is not in distress; dressed in hospital attire, unkempt; mood is described as ok... Bored affect overall brighter, calm; eye contact appropriate; Speech is normal rate, volume and prosody and not pressured; intermittent dyskinesia, but less; no psychomotor agitation/retardation present; thought process is goal directed; Thought content is on tx; otherwise pertinent to relevant topics and without any delusional content, paranoid ideations or grandiosity; denies any SI/HI. Denies AVH and there is no evidence of perceptual disturbance. Patients insight and judgment fair. Diagnostics Vital Signs (24Hr): Vital Signs - 24 hr 08/02/24 15:55 08/02/24 20:00 08/03/24 08:19 Temperature 98.5 F Pulse Rate 97 110 H 74 Respiratory Rate 16 Blood Pressure 132/71 140/90 H 120/66 Pulse Oximetry 96 Oxygen Delivery Method Room Air BMI result Body Mass Index 35.0 Labs 07/29/24 20:17 Medications Medications Current Medications Acetaminophen (Acetaminophen 325 Mg Tablet) 650 mg PO Q6H PRN PRN Reason: Headache/Pain, Scale 1-10 Al Hydroxide/Mg Hydroxide (Magnesium Hydrox/Alum Hydrox 30 Ml Oral.Susp) 30 ml PO Q6H PRN PRN Reason: Heartburn/Nausea Clonazepam (Clonazepam 0.5 Mg Tablet) 0.5 mg PO TID PRN PRN Reason: breakthu anxiety/EPS/Shakiness Last Admin: 08/02/24 19:27 Dose: 0.5 mg Divalproex Sodium (Divalproex Sodium Er 500 Mg Tab.Er.24h) 500 mg PO BEDTIME ANGEL Last Admin: 08/02/24 20:09 Dose: 500 mg Hydroxyzine HCl (Hydroxyzine Hcl 25 Mg Tablet) 25 mg PO Q6H PRN PRN Reason: mild anxiety Last Admin: 08/02/24 18:44 Dose: 25 mg Magnesium Hydroxide (Milk Of Magnesia 30 Ml Oral.Susp) 30 ml PO DAILY PRN PRN Reason: Constipation Nicotine Polacrilex (Nicotine Polacrilex 2 Mg Gum) 4 mg BUCCAL Q2H PRN PRN Reason: Nicotine Cravings Last Admin: 08/02/24 20:00 Dose: 4 mg Olanzapine (Olanzapine 5 Mg Tablet) 5 mg PO Q4H PRN PRN Reason: agitation Last Admin: 08/03/24 11:17 Dose: 5 mg Olanzapine (Olanzapine Odt 10 Mg Tab.Rapdis) 10 mg TRANSLINGU BID ANGEL Last Admin: 08/03/24 08:19 Dose: 10 mg Propranolol HCl (Propranolol Hcl 10 Mg Tablet) 5 mg PO TID ANGEL; Protocol Last Admin: 08/03/24 08:19 Dose: 5 mg Trazodone HCl (Trazodone Hcl 50 Mg Tablet) 50 mg PO BEDTIME MRX1 PRN PRN Reason: Insomnia Last Admin: 08/02/24 20:56 Dose: 50 mg Allergies Allergies Allergy/AdvReac Type Severity Reaction Status Date / Time No Known Allergies Allergy Verified 07/29/24 17:02 Assessment & Plan Assessment & Plan (1) Bipolar disorder, unspecified: Status: Acute Code(s): F31.9 - Bipolar disorder, unspecified (2) Polysubstance abuse: Status: Acute Code(s): F19.10 - Other psychoactive substance abuse, uncomplicated Plan Patient is a 19-year-old male with history of bipolar disorder, aggressive/assaultive behavior, substance abuse who presents after taking someone else's medications and expressing some vague SI. Patient was discharged from psychiatric hospital; he went to forklift picker his medications at the pharmacy who gave him the wrong medications, someone else's prescription of lithium, Haldol and Cogentin. Patient took these medications for 3 days, seemingly aware that he was doing so. Patient's became sedated and somehow went to the emergency room; elevated WBCs though lithium level was WNL and no toxicity. While in the emergency room, he was asked if he had any suicide ideation and patient apparently indicated that he did by drawing a finger across his neck. On admission to M5 unit, patient is calm, drowsy and in behavioral control. Patient says to sheet writer that he does not really want to talk but is willing share that he is not suicidal, no HI and no AVH; he says he just needs to rest and chill and complains of body shakiness; patient agrees to clonazepam to help with medication side effects. Formulation/clinical reasoning: Patient mildly dysregulated initially with vague SI (now resolved) in the face of taking someone else's medications; no indication of intentional overdose though it seems patient may have known these were not his medications. Currently patient is calm and dealing with side effects of too much Haldol (lithium levels WNL). Patient restarted on home medications of Zyprexa but also started on clonazepam to help with what seemed to be EPS side effects of akathisia or dyskinesia. Patient on a 12 B says he does not want to stay long hospital course: 07/31 says feeling a little better; no SI at all; shakes are less but remain; says he thinks he wants to dc on sunday but not sure -remains in good behavioral and impulse control 08/01 pt says doing better still and shakes are less, though still present; added propranolol which is helping. Pt says has [facility] but has not met with in a while; wants team to contact them. Also says had court hearing 07/28 and gave aircraft hydraulic equipment mechanic name asking team to call. Pt says he's homeless. Agrees to remain on unit for continued treatment of dyskinesia and to get back on meds saying he's normally on zyprexa and depakote. 08/02 Patient said that he is overall doing fine. He says he is bored' but feels safe on the unit. He is sleeping well. Says shakes are better still. Discussed outpatient regimen and agreed to start Depakote. Patient said he really wants his team to get in touch with is [facility] workers 08/03 Patient remains stable, in good behavioral and impulse control. Continues to say that shakiness is better. Asking questions about aftercare and hoping to discharge as soon as his [facility] team can be contacted -clonazepam changed to p.r.n. patient remains in good behavioral and impulse control; appropriate with peers and staff Plan: CV q15's (remains in good behavioral control) continue Zyprexa 10mg BID Continue depakote ER 500 mg q.h.s. (did not know outpatient dose) adding propranolol 5mg tid to help mitigate dyskinesia P.r.n. Clonazepam 0.5 mg for eps Working on collateral Reviewed labs from sending facility: [place] level 0.7 and on recheck after 8 hours did not rise Sodium 134, otherwise lytes, BUN/creatinine WNL Calcium WNL LFTs WNL UDS negative Magnesium 1.8 [place] 0.9 WBCs initially 17 but trended down to 14; otherwise CBC WNL Dysphagia: Only due to patient being sedated from medications; no trouble eating -patient refused swallow eval however no longer warranted Patient educated on: diagnosis, medication risk/benefits and medical condition Informed Consent: understands Reason for continued inpatient stay Substantial Risk for: rapid decompensation Time Spent With Patient Time: Total time managing care of this patient today ____ minutes.
[2024-08-03 14:53] VITALS: BP 118/60; PULSE 72
[2024-08-03] MEDS: clonazePAM 0.5 MG TABLET PO (17:57)
[2024-08-03 19:32] VITALS: BP 146/87; PULSE 88
[2024-08-03] MEDS: traZODone HCL 50 MG TABLET PO (19:32)
[2024-08-03] MEDS: Divalproex Sodium ER 500 MG TAB.ER.24H PO (19:33)
[2024-08-03 20:00] VITALS: BP 146/87; PULSE 88; RESP 16; TEMP 36.4; O2SAT 98
[2024-08-04 08:00] VITALS: RESP 18
[2024-08-04] MEDS: Propranolol HCL 10 MG TABLET 5 MG PO (12:00)
[2024-08-04] MEDS: clonazePAM 0.5 MG TABLET PO (12:00)
[2024-08-04] MEDS: OLANZapine ODT 10 MG TAB.RAPDIS TRANSLINGU (12:01)
--- NOTE | 2024-08-04 12:05 | HO.PSYCHPN ---
Subjective Subjective Date of Service: 08/04/24 Reason For Visit: bipolar disorder cannabis use Interim History: Met with patient; discussed with team Diagnostics Vital Signs (24Hr): Vital Signs - 24 hr 08/03/24 14:53 08/03/24 19:32 08/03/24 20:00 Temperature 97.5 F Pulse Rate 72 88 88 Respiratory Rate 16 Blood Pressure 118/60 146/87 H 146/87 H Pulse Oximetry 98 Oxygen Delivery Method Room Air 08/04/24 08:00 Temperature Pulse Rate Respiratory Rate 18 Blood Pressure Pulse Oximetry Oxygen Delivery Method BMI result Body Mass Index 35.0 Labs 07/29/24 20:17 Medications Medications Current Medications Acetaminophen (Acetaminophen 325 Mg Tablet) 650 mg PO Q6H PRN PRN Reason: Headache/Pain, Scale 1-10 Al Hydroxide/Mg Hydroxide (Magnesium Hydrox/Alum Hydrox 30 Ml Oral.Susp) 30 ml PO Q6H PRN PRN Reason: Heartburn/Nausea Clonazepam (Clonazepam 0.5 Mg Tablet) 0.5 mg PO TID PRN PRN Reason: breakthu anxiety/EPS/Shakiness Last Admin: 08/04/24 12:00 Dose: 0.5 mg Divalproex Sodium (Divalproex Sodium Er 500 Mg Tab.Er.24h) 500 mg PO BEDTIME ANGEL Last Admin: 08/03/24 19:33 Dose: 500 mg Hydroxyzine HCl (Hydroxyzine Hcl 25 Mg Tablet) 25 mg PO Q6H PRN PRN Reason: mild anxiety Last Admin: 08/02/24 18:44 Dose: 25 mg Magnesium Hydroxide (Milk Of Magnesia 30 Ml Oral.Susp) 30 ml PO DAILY PRN PRN Reason: Constipation Nicotine Polacrilex (Nicotine Polacrilex 2 Mg Gum) 4 mg BUCCAL Q2H PRN PRN Reason: Nicotine Cravings Last Admin: 08/02/24 20:00 Dose: 4 mg Olanzapine (Olanzapine 5 Mg Tablet) 5 mg PO Q4H PRN PRN Reason: agitation Last Admin: 08/03/24 11:17 Dose: 5 mg Olanzapine (Olanzapine Odt 10 Mg Tab.Rapdis) 10 mg TRANSLINGU BID ANGEL Last Admin: 08/04/24 12:01 Dose: 10 mg Propranolol HCl (Propranolol Hcl 10 Mg Tablet) 5 mg PO TID ANGEL; Protocol Last Admin: 08/04/24 12:00 Dose: 5 mg Trazodone HCl (Trazodone Hcl 50 Mg Tablet) 50 mg PO BEDTIME MRX1 PRN PRN Reason: Insomnia Last Admin: 08/03/24 19:32 Dose: 50 mg Allergies Allergies Allergy/AdvReac Type Severity Reaction Status Date / Time No Known Allergies Allergy Verified 07/29/24 17:02 Assessment & Plan Assessment & Plan (1) Bipolar disorder, unspecified: Status: Acute Code(s): F31.9 - Bipolar disorder, unspecified (2) Polysubstance abuse: Status: Acute Code(s): F19.10 - Other psychoactive substance abuse, uncomplicated Plan Patient is a 19-year-old male with history of bipolar disorder, aggressive/assaultive behavior, substance abuse who presents after taking someone else's medications and expressing some vague SI. Patient was discharged from psychiatric hospital; he went to pickling machine operator his medications at the pharmacy who gave him the wrong medications, someone else's prescription of lithium, Haldol and Cogentin. Patient took these medications for 3 days, seemingly aware that he was doing so. Patient's became sedated and somehow went to the emergency room; elevated WBCs though lithium level was WNL and no toxicity. While in the emergency room, he was asked if he had any suicide ideation and patient apparently indicated that he did by drawing a finger across his neck. On admission to M5 unit, patient is calm, drowsy and in behavioral control. Patient says to residential mortgage underwriter that he does not really want to talk but is willing share that he is not suicidal, no HI and no AVH; he says he just needs to rest and chill and complains of body shakiness; patient agrees to clonazepam to help with medication side effects. Formulation/clinical reasoning: Patient mildly dysregulated initially with vague SI (now resolved) in the face of taking someone else's medications; no indication of intentional overdose though it seems patient may have known these were not his medications. Currently patient is calm and dealing with side effects of too much Haldol (lithium levels WNL). Patient restarted on home medications of Zyprexa but also started on clonazepam to help with what seemed to be EPS side effects of akathisia or dyskinesia. Patient on a 12 B says he does not want to stay long hospital course: 4/3 says feeling a little better; no SI at all; shakes are less but remain; says he thinks he wants to dc on sunday but not sure -remains in good behavioral and impulse control 08/01 pt says doing better still and shakes are less, though still present; added propranolol which is helping. Pt says has [facility] but has not met with in a while; wants team to contact them. Also says had court hearing 07/28 and gave glass sander name asking team to call. Pt says he's homeless. Agrees to remain on unit for continued treatment of dyskinesia and to get back on meds saying he's normally on zyprexa and depakote. 08/02 Patient said that he is overall doing fine. He says he is bored' but feels safe on the unit. He is sleeping well. Says shakes are better still. Discussed outpatient regimen and agreed to start Depakote. Patient said he really wants his team to get in touch with is [facility] workers 08/03 Patient remains stable, in good behavioral and impulse control. Continues to say that shakiness is better. Asking questions about aftercare and hoping to discharge as soon as his DM team can be contacted -clonazepam changed to p.r.n. patient remains in good behavioral and impulse control; appropriate with peers and staff Plan: CV q15's (remains in good behavioral control) continue Zyprexa 10mg BID Continue depakote ER 500 mg q.h.s. (did not know outpatient dose) adding propranolol 5mg tid to help mitigate dyskinesia P.r.n. Clonazepam 0.5 mg for eps Working on collateral Reviewed labs from sending facility: [place] level 0.7 and on recheck after 8 hours did not rise Sodium 134, otherwise lytes, BUN/creatinine WNL Calcium WNL LFTs WNL UDS negative Magnesium 1.8 [place] 0.9 WBCs initially 17 but trended down to 14; otherwise CBC WNL Dysphagia: Only due to patient being sedated from medications; no trouble eating -patient refused swallow eval however no longer warranted Time Spent With Patient Time: Total time managing care of this patient today ____ minutes.
--- NOTE | 2024-08-04 13:21 | P.DS_ITS ---
DS: Providers Provider Date of Service: 08/04/24 Date of admission: 07/29/24 16:50 Date of discharge: 08/04/24 Primary care physician: None Physician Consults: 07/29/24 17:02 Consult to Hospitalist Routine Comment: Consulting Provider: [facility] [place] Hospitalists Reason For Exam: Transfer pt DS: Diagnosis Discharge Diagnosis (1) Bipolar disorder, unspecified: Status: Acute (2) Polysubstance abuse: Status: Acute DS: Medications Discharge Medications Home Medications: Previous Rx's ?Medication ?Instructions ?Recorded divalproex 500 mg tablet,extended 500 mg PO BEDTIME 30 days #30 tabs 08/04/24 release 24 hr olanzapine 10 mg tablet 10 mg PO BID 30 days #60 tabs 08/04/24 Mental Status Exam Mental Status Exam Narrative: Pt is alert and oriented; behavior is cooperative, friendly, calm; patient is not in distress; dressed in hospital attire, unkempt; mood is described as ok affect congruent, overall brighter, calm; eye contact appropriate; Speech is normal rate, volume and prosody and not pressured; intermittent dyskinesia, but less; no psychomotor agitation/retardation present; thought process is goal directed, linear and logical; Thought content is on discharge; otherwise pertinent to relevant topics and without any delusional content, paranoid ideations or grandiosity; denies any SI/HI. Denies AVH and there is no evidence of perceptual disturbance. Patients insight and judgment fair. Data Data Completed and Pending Completed studies during hospitalization [Text1]: 07/29/24 20:17 Sodium 137 Potassium 3.6 Chloride 104 Carbon Dioxide 24 Anion Gap 13 BUN 9 Creatinine 0.96 Estim Creat Clear Calc 134.7 Estimated GFR > 60 Random Glucose 96 Calcium 9.7 Total Bilirubin 0.4 AST 26 ALT 22 Alkaline Phosphatase 80 Total Protein 8.0 Albumin 4.6 DS: Summary Hospital Course Hospital Course: Patient is a 19-year-old male with history of bipolar disorder, aggressive/assaultive behavior, substance abuse who presents after taking someone else's medications and expressing some vague SI. Patient was discharged from psychiatric hospital; he went to picker his medications at the pharmacy who gave him the wrong medications, someone else's prescription of lithium, Haldol and Cogentin. Patient took these medications for 3 days, seemingly aware that he was doing so. Patient's became sedated and somehow went to the emergency room; elevated WBCs though lithium level was WNL and no toxicity. While in the emergency room, he was asked if he had any suicide ideation and patient apparently indicated that he did by drawing a finger across his neck. On admission to M5 unit, patient is calm, drowsy and in behavioral control. Patient says to casualty underwriter that he does not really want to talk but is willing share that he is not suicidal, no HI and no AVH; he says he just needs to rest and chill and complains of body shakiness; patient agrees to clonazepam to help with medication side effects. Formulation/clinical reasoning: Patient mildly dysregulated initially with vague SI (now resolved) in the face of taking someone else's medications; no indication of intentional overdose though it seems patient may have known these were not his medications. Currently patient is calm and dealing with side effects of too much Haldol (lithium levels WNL). Patient restarted on home medications of Zyprexa but also started on clonazepam to help with what seemed to be EPS side effects of akathisia or dyskinesia. Patient on a 12 B says he does not want to stay long hospital course: On admission (and throughout hospital course), patient was in good behavioral and impulse control and organized in behavior and speech. Initially he did not want to talk much but was polite in declining. He was having dyskinesia which he called shakes likely a side effect from excess Haldol taken prior to admission. Patient was amenable to medications to mitigate the side effects and was scheduled on Ativan; propranolol was eventually started as well. Patient denied any SI at all; he remained on a 12 B and said he wanted to return to [place] is soon as possible. The following day, patient said he was feeling a little better and that the shakes were lessening; this was visibly observed as well. He was ambivalent about discharge, saying he wanted to leave but was persuaded to stay to receive further treatment and patient signed a CV. Patient said that he was normally on Zyprexa (which was reported in ED note) as well as Depakote and patient wanted to be on both. He said that he thought a [facility] application had been submitted for him and wanted help getting services; social sciences professor made calls. Patient continued to deny any SI, HI, AVH or other psychiatric symptoms; he remained focused on being discharged back to [place] but was amenable to remaining a few days longer for continued treatment and in hopes of being connected with [facility]. Patient mostly kept to himself but was out and about in the milieu, socializing some with peers; he remained in good behavioral and impulse control, was appropriate with both peers and staff and fully organized. He said he was bored but also that he felt safe on the unit. Intermittently patient would demonstrate symptoms of dyskinesia however less and less frequently and patient agreed that it was resolving. On 08/04, patient approached casualty underwriter saying that he wanted to discharge today and that he needed to get off [this] unit... Patient explained that he was feeling confined and did not want to remain any longer; his plan was to return to [place] and stay in a penitentiary. Extension Supervisor and social sciences professor met with patient again and explained that as of yet, team has not heard back from [facility] and that he could remain on the unit longer so as to better secure a more stable aftercare plan. Patient considered this but ultimately decided he wanted to discharge and expressed some worries that perhaps his mother was going to throw out his belongings and wanted to get back to [place] in order to gather them. Patient remained fully organized in both speech and behavior; he still had some residual shakes but much less and patient was unconcerned. He was in good behavioral and impulse control, appropriate, cooperative and polite and thanked staff for help received. Patient of course remained vulnerable to relapse with substance abuse and subsequent decompensation, however this is a chronic issue for him, one of which he is well aware and will not resolve with longer stay on inpatient unit. Patient was not in imminent risk for harm to self or others and in no way did he meet criteria for involuntary commitment. Patient's request for discharge honored. Time spent discussing smoking cessation with patient: 3 to 10 minutes Status at Discharge Functional status at discharge: independent ambulation Overall status at discharge: patient is progressing back to baseline Time Spent with Patient Time attestation: Total time managing care of this patient today _45___ minutes. Time spent: Greater than 30 minutes Specific discharge activities: Met with patient; discussed with team; prescripti ons; charting Discharge Plan Discharge Anticipated Discharge Date/Time: 08/04/24 13:20 Patient Disposition: Assisted Discharge Diagnosis: Bipolar disorder, unspecified Referrals: [facility]: Taran Coreas ([facility] Embedded Nurse) [Other] - 1 Week (Please call Taran to inquire about re-starting [facility] services ) Discharge Medications: New divalproex 500 mg Tablet Extended Release 24 Hr 500 mg PO BEDTIME 30 Days Qty: 30 0RF olanzapine 10 mg tablet 10 mg PO BID 30 Days Qty: 60 0RF Discontinued benztropine 0.5 mg tablet 0.5 mg PO 2XD chlorpromazine 50 mg tablet 50 mg PO 2XD Discharge Orders: Discharge Order (Routine); Ordered 08/04/24 Ordered By: Thony Andrade Diet: Regular diet Activity on Discharge: As tolerated Stand Alone Forms: Patient Portal Discharge page, Community Support Print Language: Unknown Care Plan Goals: Maintain mood and safe behaviors Take medications as prescribed Continue to pursue sobriety Practice coping skills Continue with outpatient providers and reach out to them as needed Health Concerns: Mood stability and behaviors Sobriety Plan of Treatment: Follow up with [facility] for outpatient providers regarding above concerns Take medications as prescribed Assessment: Risk assessment at time of discharge:? Patient was interviewed prior to discharge and found to be fully oriented and without any SI or HI. Patient has improved insight and judgment and wants to continue treatment. Patient is not in imminent risk of harm to self or others and has a safety plan that includes presenting to the closest ER or calling 911 if feeling unsafe.? Patient has been observed closely by nursing and unit staff throughout admission; patient has not engaged in any behaviors that suggest dangerousness to self or others and has demonstrated appropriate behaviors and impulse control Discharge Date/Time: 08/04/24 14:25
[2024-08-04] MEDS: Nicotine Polacrilex 2 MG GUM 4 MG BUCCAL (13:31)
[2024-08-04] MEDS: Naloxone HCl Nasal TAKE HOME 4 MG SPRAY 8 MG NOSTRILALT (13:31)
== END 2024-08-04 14:25 | disposition home or self-care (01) | DRG 753 ==
PROVIDERS: Clinical Nurse Specialist Psychiatric/Mental Health, Adult; Admitting Provider Psychiatry & Neurology Psychiatry; Visit Provider Psychiatry & Neurology Psychiatry
DX: F31.9 Bipolar disorder, unspecified (principal); R45.851 Suicidal ideations; F19.10 Other psychoactive substance abuse, uncomplicated
CPT/HCPCS: 36415; 80053; 92610

== ENCOUNTER → 2024-07-29 16:50 | Outpatient (BNV) | payer MEDICAID, SELFPAY | PROVIDERS: Admitting Provider Psychiatry & Neurology Psychiatry; Visit Provider Physician Assistant | DX: Z00.00 Encounter for general adult medical examination without abnormal findings (principal) | CPT/HCPCS: 99499 ==

== ENCOUNTER → 2024-07-29 16:50 | Outpatient (BNV) | payer SELFPAY | PROVIDERS: Admitting Provider Psychiatry & Neurology Psychiatry; Visit Provider Psychiatry & Neurology Psychiatry | DX: F31.9 Bipolar disorder, unspecified (principal); F19.10 Other psychoactive substance abuse, uncomplicated | CPT/HCPCS: 99222; 99231; 99232 ==